=== PATIENT | female | born 1955 | race Caucasian/White ===

== ENCOUNTER 2022-06-09 09:13 | Outpatient (REF) | payer OTHER, SELFPAY ==
--- NOTE | ~2022-06-09 | MM_ITS ---
EXAMINATION: MM SCREENING DIGITAL BREAST TOMOSYNTHESIS, BILATERAL CLINICAL INFORMATION: Screening. Asymptomatic. The lifetime risk of breast cancer based on the Tyrer-Cuzick Model is 3%. COMPARISON: Outside mammography: 08/23/2019, 01/13/2017, 09/05/2014 ([facility]). TECHNIQUE: Digital breast tomosynthesis is performed in both the craniocaudal and mediolateral oblique views along with computer-aided detection (CAD). Synthesized 2D images are generated from the tomosynthesis. FINDINGS: There are scattered areas of fibroglandular density (ACR BI-RADS breast composition Category b). There is fibronodular parenchymal pattern similar to outside exams. There is incidental intramammary node again seen mid upper outer right breast. No developing density or significant mass or architectural abnormality is demonstrated. No abnormal calcifications. The axilla and skin contours are unremarkable. No significant changes. MM/MM tomosynthesis screening BI IMPRESSION: No mammographic evidence of malignancy. ASSESSMENT: BI-RADS 2: Benign RECOMMENDATION: Routine annual mammography screening. This patient's information was entered into a reminder system with a target due date for their next mammogram.
== END 2022-06-09 09:14 | disposition home or self-care (01) ==
LOC: HO.MAMMO 09:13
PROVIDERS: PCP Student in an Organized Health Care Education/Training Program; Visit Provider Student in an Organized Health Care Education/Training Program
DX: Z12.31 Encounter for screening mammogram for malignant neoplasm of breast (principal)
CPT/HCPCS: 77063; 77067

== ENCOUNTER 2023-06-15 09:27 | Outpatient (REF) | payer OTHER, SELFPAY ==
--- NOTE | ~2023-06-15 | MM_ITS ---
EXAMINATION: MM SCREENING DIGITAL BREAST TOMOSYNTHESIS, BILATERAL CLINICAL INFORMATION: Screening. Asymptomatic. The lifetime risk of breast cancer based on the Tyrer-Cuzick Model is 3.2%. COMPARISON: Mammography: This study is compared with prior exams dating back to 2017. TECHNIQUE: Digital breast tomosynthesis is performed in both the craniocaudal and mediolateral oblique views along with computer-aided detection (CAD). Synthesized 2D images are generated from the tomosynthesis. FINDINGS: There are scattered areas of fibroglandular density (ACR BI-RADS breast composition Category b). There are no significant masses, abnormal calcifications, or other abnormalities. There is tissue marker present in the left breast from prior benign percutaneous biopsy. MM/MM tomosynthesis screening BI IMPRESSION: No mammographic evidence of malignancy. ASSESSMENT: BI-RADS BI-RADS 2 - Benign Findings RECOMMENDATION: Routine annual mammography screening. 1 year F/U This examination should not preclude the clinical evaluation of a suspicious palpable abnormality. This patient's information was entered into a reminder system with a target due date for their next mammogram.
== END 2023-06-15 09:28 | disposition home or self-care (01) ==
LOC: HO.MAMMO 09:27
PROVIDERS: PCP Student in an Organized Health Care Education/Training Program; Visit Provider Student in an Organized Health Care Education/Training Program
DX: Z12.31 Encounter for screening mammogram for malignant neoplasm of breast (principal)
CPT/HCPCS: 77063; 77067

== ENCOUNTER → 2023-06-15 09:30 | Outpatient (BNV) | payer OTHER, SELFPAY | PROVIDERS: PCP Student in an Organized Health Care Education/Training Program; Visit Provider Radiology Diagnostic Radiology | DX: Z12.31 Encounter for screening mammogram for malignant neoplasm of breast (principal) | CPT/HCPCS: 77063; 77067 ==

== ENCOUNTER 2024-06-20 09:08 | Outpatient (REF) | payer OTHER, SELFPAY ==
--- NOTE | ~2024-06-20 | MM_ITS ---
EXAMINATION: MM SCREENING DIGITAL BREAST TOMOSYNTHESIS, BILATERAL CLINICAL INFORMATION: Screening. Asymptomatic. COMPARISON: Mammography: This study is compared with prior exams dating back to 2019. TECHNIQUE: Digital breast tomosynthesis is performed in both the craniocaudal and mediolateral oblique views along with computer-aided detection (CAD). Synthesized 2D images are generated from the tomosynthesis. FINDINGS: There are scattered areas of fibroglandular density (ACR BI-RADS breast composition Category b). There are no significant masses, abnormal calcifications, or other abnormalities. There is a biopsy tissue marker in the left breast. MM/MM tomosynthesis screening BI IMPRESSION: No mammographic evidence of malignancy. ASSESSMENT: BI-RADS BI-RADS 2 - Benign Findings RECOMMENDATION: Routine annual mammography screening. 1 year F/U This examination should not preclude the clinical evaluation of a suspicious palpable abnormality. This patient's information was entered into a reminder system with a target due date for their next mammogram.
== END 2024-06-20 09:09 | disposition home or self-care (01) ==
LOC: HO.MAMMO 09:08
PROVIDERS: PCP Student in an Organized Health Care Education/Training Program; Visit Provider Student in an Organized Health Care Education/Training Program
DX: Z12.31 Encounter for screening mammogram for malignant neoplasm of breast (principal)
CPT/HCPCS: 77063; 77067

== ENCOUNTER → 2024-06-20 09:30 | Outpatient (BNV) | payer OTHER, SELFPAY | PROVIDERS: PCP Student in an Organized Health Care Education/Training Program; Visit Provider Radiology Diagnostic Radiology | DX: Z12.31 Encounter for screening mammogram for malignant neoplasm of breast (principal) | CPT/HCPCS: 77063; 77067 ==

== ENCOUNTER 2024-12-27 15:32 | Outpatient (REF) | payer OTHER, SELFPAY ==
--- OUTSIDE RECORDS SUMMARY | 2024-12-27 17:26 | XMS_ITS | Encounter Summary ---
Author Organization [employer] Address [address] [place] [address] Care Team Providers Care Cellular Biologist Name Role Phone Roselia Enrique MD Primary Care Provider [phone] Reason for Visit * Reason Onset Date Comments Nurse Triage 12/27/2024 Encounter Details Date Type Department Care Team ([facility] st Contact Info) Description 12/27/2024 Telephone [facility] [address] [place], [place] [id number] Roselia Enrique MD [address] [place], [place] [phone] Nurse Triage Social History Tobacco Use Types Packs/Day Years Used Date Smoking Tobacco: Former Cigarettes Q uit: 04/29/2022 Smokeless Tobacco: Never Alcohol Use Standard Drinks/Week Comments Yes 1 (1 standard drink = 0.6 oz pur e alcohol) Alcohol Answer Date Recorded How often do you have a drink containing alcohol ? 4 02/12/2023 How many drinks containing a lcohol do you have on a typical day when you are drinking? 0 02/12/2023 How often do you have six or more drinks on one occasion? 0 02/12/2023 Depression Answer Date Recorded Patient Health Questionnaire-9 Score 0 02/12/2023 Housing Stability Answer Date Recorded What is your housing situation today? I have jacob pereyra 09/30/[address] you li ve. Do you have problems with any of the following? None of the above 09/30/2023 Food Insecurity Answer Date Recorded Within the past 12 months, y ou worried that your food would run out before you got money to buy more: Never True 09/30/2023 Within the past 12 months,th e food you bought just didn't last and you didn't have enough money to get more: Never True 12/2022 Transportation Answer Date Recorded In the past 12 months, has l ack of transportation kept you from medical appts, meetings, work or from getting things needed for daily living? No 09/30/2023 Utilities Answer Date Recorded In the past 12 months, has t he electric, gas, oil or water company threatened to shut off services in your home? No 09/30/2023 Depression Answer Date Recorded Patient Health Questionnaire-2 Score 0 02/12/2023 Comments Unknown Sex and Gender Information Value Date Recorded Sex Assigned at Female 2022 10:40 AM EDT Legal Sex Female 10:40 AM EDT Gender Identity Female 2022 10:40 AM EDT Sexual Orientation Straight 02/05/2023 1: 51 PM EST documented as of this encounter Miscellaneous Notes * Telephone Encounter - Ghada Mckeon RN - 12/27/2024 10:27 AM EST called pt to triage, spoke to pt. pt states several days duration of congestion, cough, sore throat, left ear pain, right ear pressure/blockage, and fatigue. pt denies fever, rash, severe or sustained sob, vomiting, or other associated symptoms. given appt today with [facility] at 2:40 for exam. advised home care: rest, fluids, steam, humidifier, warm saltwater gargles, lozenges, OTC pain or fever reliever as needed, and call back if worsening or new concerns. insurance verified. pt understands and agrees with plan. Pt currently on an antibiotic prescribed by PCP due to symptoms but not helping. Protocol Used: Cough (Adult) Protocol-Based Disposition: See in Office or Video Visit Today or Tomorrow Video visit offer not recorded Positive Triage Question: * Patient wants to be seen * All higher-acuity triage questions were negative Care Advice Discussed: * Reassurance and Education - Cough * Cough Medicines * Coughing Spells * Prevent Dehydration * Avoid Tobacco Smoke * Humidifier * Fever Medicines * Reasons To Call Back - Difficulty breathing - Cough lasts more than 3 weeks - Fever lasts more than 3 days - You become worse * Telephone Encounter - Mono Mauro - 12/27/2024 8:53 AM EST Symptom: Cough Outcome: Schedule an appointment to be seen within 24 hours Reason: Caller denied all higher acuity questions Please contact pt/spouse at [phone]. documented in this encounter Plan of Treatment Upcoming Encounters Date Type Department Care Team (Late st Contact Info) Description 01/30/2025 9:30 AM EST Office Visit [facility] [address] [place] [address] Cole Shen MD [address] [place] [address] documented as of this encounter Visit Diagnoses Not on filedocumented in this encounter Additional Health Concerns Assessment Noted Time PHQ-9 Depression Total Score: 0 02/13/20 23 10:30 AM EDT documented as of this encounter Care Teams Cellular Biologist Relationship Specialty Start Date End Date Roselia Enrique MD [address] [place] [id number] PCP - General Family Medicine 04/24/22 documented as of this encounter
--- OUTSIDE RECORDS SUMMARY | 2024-12-27 17:26 | XMS_ITS | Clinical Summary ---
Author Organization [facility] Address [address] [place] [address] Care Team Providers Care Riprap Worker Name Role Phone Unavailable Primary Care Provider Unavailabl e Allergies No known active allergies Medications Medication Sig Dispensed Refills Start Date End Date Status ibuprofen 200 MG tablet Take 400 mg by mouth every 6 (six) hours as needed for pain. 0 Active meloxicam (MOBIC) 7.5 MG tablet PLEASE SEE ATTACHED FOR DETAILED DIRECTIONS 60 tablet 0 09/08/2021 Active Social History Tobacco Use Types Packs/Day Years Used Date Smoking Tobacco: Every Day Cigarettes 1 Smokeless Tobacco: Never Alcohol Use Standard Drinks/Week Comments Yes 0 (1 standard drink = 0.6 oz pur e alcohol) Sex and Gender Information Value Date Recorded Sex Assigned at Not on file Gender Identity Not on file Sexual Orientation Not on file Job Start Date Occupation Industry Not on file Not on file Not on file Last Filed Vital Signs Vital Sign Reading Time Taken Comments Blood Pressure - - Pulse 97 08/08/2021 1:44 PM EDT Temperature 36.6 ??C (97.8 ??F) 08/08/2021 1:44 PM ED T Respiratory Rate - - Oxygen Saturation 96% 08/08/2021 1:44 PM EDT Inhaled Oxygen Concentration - - Weight 68 kg (150 lb) 08/08/2021 1:44 PM EDT Height 157.5 cm (5' 2 ) 08/08/2021 1:44 PM EDT Body Mass Index 27.44 08/08/2021 1:44 PM EDT Plan of Treatment Health Maintenance Due Date Last Done Comments Hepatitis C Screening 1956 Pneumococcal Vaccine (1 of 2 - PCV) 1962 Depression Screening 1968 Preventative Health Evaluation 1974 Tobacco Cessation Counseling 1974 Colon Cancer Screening (Colonoscopy) 2001 Breast Cancer Screening (Mammogram) 2006 Shingrix-Zoster Vaccine (1 of 2) 2006 Fall Risk Assessment 2021 Osteoporosis Screening (DEXA Scan) 2021 DTap / Tdap / Td (2 - Td or Tdap) 02/18/2022 02/19/2012 COVID-19 Vaccine (3 - season) 2024 04/02/2021, 03/05/2021 Influenza Vaccine (#1) 2024 0, 09/26/2019, 09/16/2018, Additional history exists RSV Adult > 60+ Yrs or (1 - 1-dose 75+ series) 2031 Hepatitis B Vaccines Aged Out No long er eligible based on patient's age to complete this topic RSV Ped < 20 months Aged Out No longe r eligible based on patient's age to complete this topic
--- OUTSIDE RECORDS SUMMARY | 2024-12-27 17:26 | XMS_ITS | Clinical Summary ---
Author Organization [address] [place] [address] Address [address] [place] [address] Phone Care Team Providers Care Supervisor Acoustical Tile Carpenters Name Role Phone Roselia Enrique MD Primary Care Provider [phone] Allergies Active Allergy Reactions Criticality Noted Date Comments Iodinated Contrast Media Hives 12/08/2011 Medications Medication Sig Dispensed Refills Start Date End Date Status cholecalciferol, vitamin D3, (VITAMIN D3 ORAL) Take 1,000 mg by mouth 1 (one) time each day. Active IRON-FOLIC ACID ORAL Take by mouth daily. Active Active Problems Problem Noted Date Diagnosed Date Tachycardia 11/02/2024 PAD (peripheral artery disease) 07/29/2022 Overview (11/02/2024): Last Assessment & Plan: Patient has history of significant peripheral arterial disease and recently underwent revascularization of her right lower extremity. She continues to follow with vascular surgery. Prior to surgery she underwent cardiac evaluation with an echocardiogram and nuclear stress testing. We once again discussed the results of her testing. She does not have any other cardiac symptoms or cardiac problems. We discussed that she is at an increased risk for cardiovascular disease given her history of peripheral arterial disease hyperlipidemia and history of smoking. Patient is encouraged to continue to abstain from smoking. We also discussed that continuing with aspirin and statin will help with her cardiovascular risks as well. At this point, she does not have any cardiac symptoms and will follow up with us only as needed. Aortic occlusion 07/24/2022 Diverticulitis large intesti ne w/o perforation or abscess w/o bleeding 08/03/2017 Overview (11/02/2024): First attack 06/2017. Osteopenia 02/03/2017 Overview (11/02/2024): T score -1.7 the spine, -0.3 the femoral neck Epigastric pain 10/30/2015 Overview (11/02/2024): EGD normal 10/13; Dr. Mcqueen Psoriasis 02/19/2012 Tobacco use disorder 02/02/2012 Sacroiliac joint pain 02/01/2012 Hyperlipidemia 12/08/2011 Overview (11/02/2024): Last Assessment & Plan: Continue with atorvastatin as prescribed. Lumbar disc herniation 12/08/2011 Encounters Date Type Department Care Team Description 12/22/2024 7:30 AM EST Ancillary Procedure [facility] - [address] [place] [phone] Aortic occlusion (CMS/HCC) 12/04/2024 Telephone Vascular Surgery - [place] [address] [place] [phone] Stevan Steel MD Imaging Follow-up; Testing from Last 3 Months Immunizations Name Administration Dates Next Due Influenza Quadravalent, MDCK , 0.5ml, preservative free (Flucelvax) 6mo and older 09/16/2018 Influenza trivalent, 0.5mL, preservative free (Fluarix; FluLaval; Fluzone) ages 6mo and older (Afluria) 3 years and older 09/21/2020,09/26/2019,08/23/2015 Moderna SARS-CoV-2 COVID-19, mRNA, LNP-S, preservative free 04/02/2021,03/05/2021 Tdap Tetanus diptheria acell ular pertussis (Boostrix; Adacel) 7yo and older 02/19/2012 Surgical History Surgery Date Site/Laterality Comments OTHER SURGICAL HISTORY 1994 PROCEDURE: LA TOTAL ABDOMINAL HYSTERECT W/WO RMVL TUBE OVARY OTHER SURGICAL HISTORY 2009 PROCEDURE: PARTIAL REMOVAL OF THYROI KIDNEY STONE SURGERY 1979 PROCEDURE: LA NEPHROLITHOTOMY REMOVAL CALCULUS APPENDECTOMY 1994 PROCEDURE: HISTORICAL APPENDECTOMY OTHER SURGICAL HISTORY PROCEDURE: LA COLECTOMY PARTIAL W/ANASTOMOSIS OTHER SURGICAL HISTORY 05/11/2022 PROCEDURE: LA TEAEC W/WO PATCH GRAFT ABDOMINAL AORTA; COMMENT: Infrarenal aortic edarterectomy with bovine pericardial patch angioplasty OTHER SURGICAL HISTORY 05/11/2022 PROCEDURE: LA ENTEROLSS FRING INTSTINAL ADHESION SPX; COMMENT: Extensive lysis of large and small bowl adhesions HYSTERECTOMY PROCEDURE: HISTORICAL TOTAL HYSTERECTOMY WITH BSO OTHER SURGICAL HISTORY PROCEDURE: HISTORY OTHER; COMMENT: Colectomy Medical History Medical History Date Comments Pneumonia DX:Pneumonia; CO MMENT: as a child Back pain DX:Back pain Hip pain, left 12/08/2011 DX:Hip pain, lef t High cholesterol DX:High cholest lorene Psoriasis 02/19/2012 DX:Psoriasis Tachycardia DX:Tachycardia Diverticulitis large intesti ne w/o perforation or abscess w/o bleeding 08/03/2017 DX:Diverticulitis large intestine w/o perforation or abscess w/o bleeding; COMMENT: First attack 06/2017. Critical lower limb ischemia (CMS/HCC) DX:Critical lower limb ische sofia (HCC) Intermittent claudication du e to atherosclerosis of artery of extremity (CMS/HCC) DX:Intermittent claudication due to atherosclerosis of artery of extremity (HCC) Rest pain of both lower extr emities due to atherosclerosis (CMS/HCC) DX:Rest pain of both lower extremities due to atherosclerosis (HCC) Acute respiratory failure wi th hypoxia (CMS/HCC) DX:Acute respiratory failure with hypoxia (HCC) Postoperative ileus (CMS/HCC) DX :Postoperative ileus (HCC) Acute postoperative pain DX:Acut e postoperative pain Acute postoperative anemia d ue to greater than expected blood loss DX:Acute postoperativ e anemia due to greater than expected blood loss Family History Medical History Relation Name Comments Hyperlipidemia Brother 1 Kendall Other: pulm emb Brother 1 Kendall Other: pvd Brother 1 Kendall No Known Problems Brother 2 No Known Problems Brother 3 Diabetes Father Glaucoma Father Hypertension Father Other: CKD Father Other: gout Father Pancreatic cancer Sister dx 08/12 Relation Name Status Comments Brother 1 Kendall Alive clotting disord er, Pulmonary embolism, hyperlipidemia Brother 2 Alive Brother 3 Alive Daughter Alive ulcerative coli tis Father Alive Mother Alive chol Sister (Age 61) Son Alive healthy; WALLY Social History Tobacco Use Types Packs/Day Years Used Date Smoking Tobacco: Former Cigarettes 0.8 50.4 0 11/29/1971 - 04/29/2022 Smokeless Tobacco: Never Alcohol Use Standard Drinks/Week Comments Yes 0 (1 standard drink = 0.6 oz pur e alcohol) Sex and Gender Information Value Date Recorded Sex Assigned at Female 12/02/2022 2:53 PM EST Gender Identity Female 12/02/2022 2:53 PM EST Sexual Orientation Not on file Job Start Date Occupation Industry Not on file Not on file Not on file Obstetrics History Last Filed Vital Signs Vital Sign Reading Time Taken Comments Blood Pressure 120/70 07/21/2024 9:38 AM EDT Pulse 72 07/21/2024 9:38 AM EDT Temperature - - Respiratory Rate - - Oxygen Saturation - - Inhaled Oxygen Concentration - - Weight 72.1 kg (159 lb) 07/21/2024 9:38 AM EDT Height 160 cm (5' 3 ) 07/21/2024 9:38 AM EDT Body Mass Index 28.17 07/21/2024 9:38 AM EDT Plan of Treatment Upcoming Encounters Date Type Department Care Team (Late st Contact Info) Description 01/22/2025 8:30 AM EST Office Visit Vascular Surgery - [place] [address] [place] [phone] Stevan Steel MD [address] [place] [address] Health Maintenance Due Date Last Done Comments Zoster Vaccines (1 of 2) 2006 Breast Cancer Screening 08/23/2021 08/23/2019 Cholesterol Screening (Lipid Panel) 11/07/2022 01/06/2017 Falls Risk Assessment 11/07/2022 Lung Cancer Screening (Low Dose CT) 11/07/2022 Medicare Annual Wellness Visit 11/07/2022 Social Influencers of Health Screening 11/07/2022 Pneumococcal Vaccine: 65+ Years (2 of 2 - PPSV23 or PCV20) 06/25/2023 06/25/2022 Depression Screening 02/13/2024 02/12/2023 COVID-19 Vaccine ( - season) 2024 04/02/2021, 03/05/2021 Influenza Vaccine (#1) 2024 , 09/21/2020, 09/26/2019, Additional history exists Colorectal Cancer Screening: Colonoscopy 01/30/2026 01/30/2021 Osteoporosis Screening (Bone Density Screening) 08/24/2029 08/24/2019 RSV Immunization Patients 60+ Years Old (1 - 1-dose 75+ series) 2031 DTaP,Tdap,and Td Vaccines (3 - Td or Tdap) 06/25/2032 06/25/2022, 02/19/2012 Hepatitis C Screening Completed 06/29/2015 HIB Vaccines Aged Out No longer eligi ble based on patient's age to complete this topic HPV Vaccines Aged Out No longer eligi ble based on patient's age to complete this topic Hepatitis A Vaccines Aged Out No long er eligible based on patient's age to complete this topic Hepatitis B Vaccines Aged Out No long er eligible based on patient's age to complete this topic IPV Vaccines Aged Out No longer eligi ble based on patient's age to complete this topic MMR Vaccines Aged Out No longer eligi ble based on patient's age to complete this topic Meningococcal ACWY Vaccine Aged Out N o longer eligible based on patient's age to complete this topic RSV Immunization Patients Under 20 months Aged Out No longer eligible based on patient's age to complete this topic Varicella Vaccines Aged Out No longer eligible based on patient's age to complete this topic Procedures Procedure Name Priority Date/Time Associated Diagnosis Comments VAS US DUPLEX AORTA/IVC/ILIAC/MICHAELA TS COMPLETE Routine 12/22/2024 7:44 AM EST Aortic occlusion (CMS/HCC) COLONOSCOPY Routine 01/30/2021 [facility] DEXA AXIAL SKELETON Routine 08/24/2019 5:09 PM EDT Asymptomatic menopausal state [facility] SCREENING DIGITAL Routine 08/23/2019 9:36 AM EDT Encounter for screening mammogram for malignant neoplasm of breast LIPID PANEL Routine 01/06/2017 HEPATITIS C SCREENING Routine 06/29/2015 from Last 3 Months or Most Recently Relevant to Health Maintenance Results * Vascular US duplex aorta/IVC/iliac/grafts complete (12/22/2024 7:44 AM EST) Abdominal dist aorta leila 149 cm/s CV [facility] Abdominal mid aorta leila 116 cm/s CV [facility] Abdominal prox aorta leila 85 cm/s CV [facility] LAB Abdominal prox aorta AP 1.45 cm CV [facility] Abdominal prox aorta trans 1.57 cm CV [facility] Proximal Aorta Long Diameter 1.45 cm CV [facility] Abdominal mid aorta AP 1.03 cm CV [facility] LAB Abdominal mid aorta trans 1.75 cm CV VAS LAB Mid Aorta Long Diameter 0.89 cm CV [facility] LAB Abdominal dist aorta AP 0.74 cm CV VAS LAB Abdominal dist aorta trans 1.03 cm CV V[facility] LAB Dist Aorta Long Diameter 0.62 cm CV V[facility] LAB Abdominal rt com iliac AP 0.77 cm CV VAS LAB Abdominal rt com iliac trans 0.86 cm CV VAS LAB Right Common Iliac Long Diameter 0.70 cm CV VAS LAB Right Prox Common Iliac PSV 170 cm/s CV V[facility] LAB Abdominal lt com iliac AP 0.58 cm CV V[facility] LAB Abdominal lt com iliac trans 0.79 cm CV VAS LAB Left Common Iliac Long Diameter 0.58 cm CV VAS LAB Left Prox Common Iliac PSV 156 cm/s CV VAS LAB Anatomical Region Laterality Modality Vascular, Abdomen Ultrasound Narrative 12/24/2024 10:49 AM EST Normal size of the abdominal aorta without any aneurysm. Mild atherosclerotic plaque of the abdominal aortic wall. Bilateral common iliac arteries are normal in size and flow velocity. Textile Stylist Details A daniels scale, color and doppler analysis ultrasound was performed. During the study longitudinal and transverse views were obtained. Pulsed wave doppler was performed. Stevan Steel MD CV VASCULAR PROCEDUR ES * Colonoscopy (01/30/2021) Colonoscopy Abstracted. No Interpretation Anatomical Region Laterality Modality Other Historical Provider MD LIDIA LERNER E * ROGELIO DEXA AXIAL SKELETON (08/24/2019 5:09 PM EDT) Anatomical Region Laterality Modality Mammography 08/23/2019 7:47 AM EDT Narrative 08/24/2019 5:09 PM EDT [facility] Diagnostic Imaging Department [address] [place] [address] [id number] Patient: ??COREEN WRIGHTARA Lisa ?/Age/Sex: 1955 - 63 - F Unit#: ??[id number] ? Location/Status: ??SPDIMAM/REG CLI ? Mnemonic/Ordering Site: ??MAMDEXAAX/SPMAM Ordering Physician: ??CURRY CROOKS MD [facility] Dexa Axial Skeleton - 08/23/19 - 0856 [facility] Dexa Axial Skeleton INDICATION: POSTMENOPAUSAL Technique: Bone densitometry was performed utilizing dual energy x-ray absorptiometry (DEXA). The lumbar spine is evaluated in the AP projection from L1 through L4. The proximal femora are evaluated in the AP projection bilaterally. COMPARISON: 01/13/2017 FINDINGS: AP spine: Bone mineral density: 0.946 gm/cm2 T-score: -2.0 Right femoral neck: Bone mineral density: 0.806 gm/cm2 T-score: -1.7 IMPRESSION: Findings suggesting osteopenia, placing the patient at risk for fracture. The FRAX result suggests a 10 year probability of major osteoporotic fracture of 15.7 % and hip fracture of 2.9%. 10 year probability of osteoporotic fracture may be lower than FRAX estimate if patient has received treatment. [id number] A report detailing these results has been enclosed. Dictating Physician: ??KIZZY HERRERA MD Electronically Signed by: ??KIZZY HERRERA MD Dic Date/Time: ??08/24/191707 Sign date/Time: ??08/24/191708 Procedure Note Kizzy Herrera - 11/18/2022 [facility] Diagnostic Imaging Department [address] [place] [id number] Patient: SUZANNEOMAYRA Lisa Yanes./Age/Sex: 1955 - 63 - F Unit#: [id number] Location/Status: [facility] CLI Mnemonic[facility]Ordering [facility] Ordering Physician: CURRY CROOKS MD [facility] Dexa Axial Skeleton - 08/23/19 - 0856 [facility] Dexa Axial Skeleton INDICATION: POSTMENOPAUSAL Technique: Bone densitometry was performed utilizing dual energy x-ray absorptiometry (DEXA). The lumbar spine is evaluated in the AP projectionfrom L1 through L4. The proximal femora are evaluated in the AP projection bilaterally. COMPARISON: 01/13/2017 FINDINGS: AP spine: Bone mineral density: 0.946 gm/cm2 T-score: -2.0 Right femoral neck: Bone mineral density: 0.806 gm/cm2 T-score: -1.7 IMPRESSION: Findings suggesting osteopenia, placing the patient at risk forfracture. The FRAX result suggests a 10 year probability of major osteoporoticfracture of 15.7 % and hip fracture of 2.9%. 10 year probability of osteoporotic fracture may be lower than FRAXestimate if patient has received treatment. 96178 A report detailing these results has been enclosed. Dictating Physician: KIZZY HERRERA MD Electronically Signed by: KIZZY HERRERA MD Dic Date/Time: 08/24/191707 Sign date/Time: 08/24/191708 Curry Crooks MD IMG BI PROCEDURES * ROGELIO SCREENING DIGITAL (08/23/2019 9:36 AM EDT) Anatomical Region Laterality Modality Mammography 08/23/2019 7:49 AM EDT Narrative 08/23/2019 9:36 AM EDT [facility] Diagnostic Imaging Department [address] [place] [address] Patient: ??COREEN WRIGHTARA Lisa ?/Age/Sex: 1955 - 63 - F Unit#: ??[id number] ? Location/Status: ??SPDIMAM/REG CLI ? Mnemonic/Ordering Site: ??DIGSC/SPMAM Ordering Physician: ??CURRY CROOKS MD Rogelio Screening Digital - 08/23/19806 History: Bilateral breast cancer screening. Technique: Digital mammography. Conventional CC and MLO projections with tomosynthesis MLO views and computer aided detection. Comparison made with previous mammograms from [facility] 01/13/2017 through 01/16/2005. Findings: Breast tissue consists of a heterogenous combination of ??fatty and fibroglandular tissue, potentially obscuring small lesions, category c density. There are benign calcifications bilaterally. No suspicious group of microcalcification, suspicious mass, concerning focal asymmetry, architectural distortion or concerning change in breast density affecting either breast. Impression: ??No evidence of malignancy. BIRADS category 2; benign findings, 3342F 33441, 44947 A negative mammogram in the face of a clinically suspicious abnormality does not exclude the possibility of malignancy nor alter the indications for biopsy. Note: Patient information entered ??into a reminder system with a target due date for the next mammogram; PQRI II [id number] Dictating Physician: ??ALEXSANDER MATHIS MD Electronically Signed by: ??ALEXSANDER MATHIS MD Dic Date/Time: ??08/23/19934 Sign date/Time: ??08/23/19935 Procedure Note Alexsander Mathis - 11/18/2022 [facility] Diagnostic Imaging Department [address] [place] [address] Patient: OMAYRA WRIGHT Lisa /Age/Sex: 1955 - 63 - F Unit#: [id number] Location/Status: [facility] Mnemonic/Ordering Site: [facility] Ordering Physician: CURRY CROOKS MD Rogelio Screening Digital - 08/23/19806 History: Bilateral breast cancer screening. Technique: Digital mammography. Conventional CC and MLO projections with tomosynthesis MLO views and computer aided detection. Comparison made with [facility] mammograms [facility] through 01/16/2005. Findings: Breast tissue consists of a heterogenous combination of fattyand fibroglandular tissue, potentially obscuring small lesions, category cdensity. There are benign calcifications bilaterally. No suspicious group of microcalcification, suspicious mass, concerning focal asymmetry,architectural distortion or concerning change in breast density affecting eitherbreast. Impression: No evidence of malignancy. BIRADS category 2; benign findings, 3342F 71094, 43994 A negative mammogram in the face of a clinically suspicious abnormalitydoes not exclude the possibility of malignancy nor alter the indications forbiopsy. Note: Patient information entered into a reminder system with a targetdue date for the next mammogram; PQRI II [id number] Dictating Physician: ALEXSANDER MATHIS MD Electronically Signed by: ALEXSANDER MATHIS MD Dic Date/Time: 08/23/19934 Sign date/Time: 08/23/19935 Curry Crooks MD IMG BI PROCEDURES * (ABNORMAL) Lipid panel (01/06/2017) Pathologist [facility] LDL/HDL Ratio 7(A) 0 - 4 Triglycerides 218(A) 0 - 150 mg/dL Cholesterol 288(A) 0 - 200 mg/dL HDL 43 40 mg/dL LDL Cholesterol 202(A) 0 - 100 mg/dL Blood Venous blood specimen / Unknown Historical Provider LAB BLOOD ORDERAB LES * Hepatitis C Screening (06/29/2015) Pathologist [facility] Hepatitis C Screening Abstracted Historical Provider [facility] YANN Ulrich from Last 3 Months or Most Recently Relevant to Health Maintenance Advance Directives Documents on File Type Date Recorded Patient Parking Technician Expl anation Health Care Decision (hx) 05/11/2022 AD SHAHID DIRECTIVE Health Care Decision (hx) 05/11/2022 AD SHAHID DIRECTIVE Health Care Decision (hx) 05/11/2022 AD SHAHID DIRECTIVE Health Care Decision (hx) 05/11/2022 AD SHAHID DIRECTIVE Health Care Decision (hx) 05/11/2022 AD SHAHID DIRECTIVE Health Care Decision (hx) 05/11/2022 AD SHAHID DIRECTIVE Health Care Decision (hx) 05/11/2022 AD SHAHID DIRECTIVE Health Care Decision (hx) 05/11/2022 AD SHAHID DIRECTIVE Health Care Decision (hx) 05/11/2022 AD SHAHID DIRECTIVE Care Teams Supervisor [employer]ical Tile Carpenters Relationship Specialty Start Date End Date Roselia Enrique MD [address] [place] [address] PCP - General 05/27/22
--- OUTSIDE RECORDS SUMMARY | 2024-12-27 17:26 | XMS_ITS | Encounter Summary ---
Author Organization [facility] Address [address] [place] [address] Care Team Providers Care Spine Nurse Name Role Phone Roselia Enrique MD Primary Care Provider [phone] Reason for Referral * Imaging (Routine) - Closed Specialty Diagnoses / Procedures Referred By Contac t Referred To Contact Diagnoses Aortic occlusion (CMS/HCC) Procedures Vascular US duplex aorta/IVC/iliac/grafts complete Stevan Steel MD [address] [address] [facility] Referral ID Status Reason Start Date Expiration Date Visits Re quested Visits Authorized [id number] Closed 12/04/2024 12/04/2025 1 1 Reason for Visit * Reason Onset Date Comments Imaging Follow-up 12/04/2024 Testing 12/04/2024 Encounter Details Date Type Department Care Team (Late st Contact Info) Description 12/04/2024 Telephone Vascular Surgery - [place] [address] [phone] Stevan Steel MD [address] [place] [phone] Imaging Follow-up; Testing Social History Tobacco Use Types Packs/Day Years [...] file Not on file Not on file documented as of this encounter Progress Notes * Ron Miner MA - 12/04/2024 1:02 PM EST ordered * Elijah Garrison - 12/04/2024 12:54 PM EST Patient has yet to receive a date for an aortoiliac duplex. Patient is due to be back in our officeon 01/22. Please resubmit order so scheduling may happen. documented in this encounter Plan of Treatment Upcoming Encounters Date Type Department Care Team (Late st Contact Info) Description 01/22/2025 8:30 AM EST Office Visit Vascular Surgery - [place] [address] [place] [address] Stevan Steel MD [address] [place] [address] documented as of this encounter Results * Vascular US duplex aorta/IVC/iliac/grafts complete [...] are normal in size and flow velocity. Divine Healer Details A daniels scale, color and doppler analysis ultrasound was performed. During the study longitudinal and transverse views were obtained. Pulsed wave doppler was performed. Stevan Steel MD CV VASCULAR PROCEDUR ES documented in this encounter Visit Diagnoses Diagnosis Aortic occlusion (CMS/HCC)- Primary Aortic occlusion (CMS/HCC) documented in this encounter Care Teams Spine Nurse Relationship Specialty Start Date End Date Roselia Enrique MD [address] [place] [phone] PCP - General 05/27/22 documented as of this encounter
--- OUTSIDE RECORDS SUMMARY | 2024-12-27 17:26 | XMS_ITS | Encounter Summary ---
Author Organization [employer] Address [address] [facility] [address] [place] [address] Care Team Providers Care Water Quality Technician Name Role Phone Roselia Enrique MD Primary Care Provider [phone] Encounter Details Date Type Department Care Team (Latest Contact Info) Description 12/27/2024 Travel Social History Tobacco Use Types Packs/Day Years [...] PM EST documented as of this encounter Plan of Treatment Upcoming Encounters Date Type Department Care Team (Late st Contact Info) Description 01/30/2025 9:30 AM EST Office Visit [facility] [address] [place] [address] Cole Shen MD [address] [place] [address] documented as of this encounter Visit Diagnoses Not on filedocumented in this encounter Additional Health Concerns Assessment Noted Time PHQ-9 Depression Total Score: 0 02/13/20 23 10:30 AM EDT documented as of this encounter Care Teams Water Quality Technician Relationship Specialty Start Date End Date Roselia Enrique MD [address] [place] [address] PCP - General Family Medicine 04/24/22 documented as of this encounter
--- OUTSIDE RECORDS SUMMARY | 2024-12-27 17:26 | XMS_ITS | Encounter Summary ---
Author Organization [employer] Address [address] [facility] [address] [place] [address] Care Team Providers Care Right Of Way Appraiser Name Role Phone Roselia Enrique MD Primary Care Provider [phone] Reason for Visit * Reason Comments Med Change Request Encounter Details Date Type Department Care Team (Late Contact Info) Description 12/31/2022 Refill [facility]S [address] [place], [place] [phone] Roselia Enrique MD [address] [place] [address] Aortic occlusion (CMS/HCC) Social History Tobacco Use Types Packs/Day Years Used Date Smoking Tobacco: Never Smokeless Tobacco: Never Comments Unknown Sex and Gender Information Value Date Recorded Sex Assigned at Female 2022 10:40 AM EDT Legal Sex Female 10:40 AM EDT Gender Identity Female 2022 10:40 AM EDT Sexual Orientation Straight 02/05/2023 1: 51 PM EST COVID-19 Exposure Response Date Recorded In the last 10 days, have yo u been in contact with someone who was confirmed or suspected to have Coronavirus/COVID-19? No / Unsure 12/03/2022 10:31 AM EST documented as of this encounter Plan of Treatment Upcoming Encounters Date Type Department Care Team (Late st Contact Info) Description 01/30/2025 9:30 AM EST Office Visit [facility] [address] [place] [address] Cole Shen MD [address] [place], [place] [phone] documented as of this encounter Visit Diagnoses Diagnosis Aortic occlusion (CMS/HCC) documented in this encounter Care Teams Right Of Way Appraiser Relationship Specialty Start Date End Date Roselia Enrique MD [address] [place] [id number] PCP - General Family Medicine 04/24/22 documented as of this encounter
--- OUTSIDE RECORDS SUMMARY | 2024-12-27 17:26 | XMS_ITS | Encounter Summary ---
Author Organization [employer] Address [address] [place] [address] Care Team Providers Care Franchise Field Consultant Name Role Phone Roselia Enrique MD Primary Care Provider [phone] Encounter Details Date Type Department Care Team ([facility] st Contact Info) Description 12/25/2024 Telephone [facility]ED[facility] [address] [place] [address] Roselia Enrique MD [address] [place], [place] [phone] Social History Tobacco Use Types Packs/Day Years [...] Description 01/30/2025 9:30 AM EST Office Visit [facility] [address] [place] [address] Cole Shen MD [address] [place] [address] documented as of this encounter Visit Diagnoses Not on filedocumented in this encounter Additional Health Concerns Assessment Noted Time PHQ-9 Depression Total Score: 0 02/13/20 23 10:30 AM EDT documented as of this encounter Care Teams Franchise Field Consultant Relationship Specialty Start Date End Date Roselia Enrique MD [address] [place] [phone] PCP - General Family Medicine 04/24/22 documented as of this encounter
--- OUTSIDE RECORDS SUMMARY | 2024-12-27 17:26 | XMS_ITS | Encounter Summary ---
Author Organization [employer] Address [address] [facility] [address] [place] [address] Care Team Providers Care Branch Or Department Chief Librarian Name Role Phone Roselia Enrique MD Primary Care Provider [phone] Reason for Visit * Reason Comments Shortness of Breath Encounter Details Date Type Department Care Team ([facility] st Contact Info) Description 12/27/2024 2:40 PM EST Office Visit [facility] & PEDS [address] [place], [place] [phone] Cole Shen MD [address] [place] [address] Sensation of fullness in both ears (Primary Dx); Other infective acute otitis externa of both ears; Iron deficiency anemia secondary to inadequate dietary iron intake; Psoriasis Social History Tobacco Use Types Packs/Day Years [...] the past 12 months, has t he [employer], gas, oil or water [employer] threatened to shut off services in your home? No 09/30/2023 Depression Answer Date Recorded Patient Health Questionnaire-2 Score 0 02/12/2023 Comments Unknown Sex and Gender Information Value Date Recorded Sex Assigned at Female 2022 10:40 AM EDT Legal Sex Female 10:40 AM EDT Gender Identity Female 2022 10:40 AM EDT Sexual Orientation Straight 02/05/2023 1: 51 PM EST documented as of this encounter Last Filed Vital Signs Vital Sign Reading Time Taken Comments Blood Pressure 139/80 12/27/2024 2:30 PM EST Pulse 105 12/27/2024 2:30 PM EST Temperature 36.7 ??C (98 ??F) 12/27/2024 2:30 PM EST Respiratory Rate 20 12/27/2024 2:30 PM EST Oxygen Saturation 94% 12/27/2024 2:30 PM EST Inhaled Oxygen Concentration - - Weight - - Height - - Body Mass Index - - documented in this encounter Progress Notes * Cole Shen MD - 12/27/2024 2:40 PM EST Subjective Patient ID: Miranda Wright is a 69 y.o. female who presents for No chief complaint on file.. Earache There is pain in both ears. This is a new problem. The current episode started in the past 7 days. The problem occurs constantly. The problem has been rapidly worsening. The maximum temperature recorded prior to her arrival was 100.4 - 100.9 F. The fever has been present for 1 to 2 days. The pain is at a severity of 6/10. Associated symptoms include coughing, ear discharge, headaches, rhinorrhea and a sore throat. Pertinent negatives include no abdominal pain, diarrhea, hearing loss, neck pain,rash or vomiting. Note from triage reviewed: pt states several days duration of congestion, cough, sore throat, left ear pain, right ear pressure/blockage, and fatigue. pt denies fever, rash, severe or sustained sob, vomiting, or other associated symptoms. given appt today with [facility] at 2:40 for exam. advised home care: rest, fluids, steam, humidifier, warm saltwater gargles, lozenges, OTC pain or fever reliever as needed, and call back if worsening or new concerns. insurance verified. pt understands and agrees with plan. History is verified. Patient is mostly concerned about right ear fullness and feels some fullness as well on the left ear. No fever or other constitutional symptoms reported. Patient Active Problem List Diagnosis Aortic occlusion (CMS/HCC) Iron deficiency anemia secondary to inadequate dietary iron intake Psoriasis Current Outpatient Medications on File Prior to Visit Medication Sig Dispense Refill amoxicillin-clavulanate (Augmentin) 875-125 MG tablet Take 1 tablet by mouth 2 times daily for 10 days. 20 tablet 0 Aspirin Low Dose 81 MG EC tablet atorvastatin (Lipitor) 40 MG tablet Take 1 tablet (40 mg) by mouth in the morning. 30 tablet 11 cholecalciferol (Vitamin D-3) 50 MCG (2000 UT) tablet Take by mouth at bed time. ferrous sulfate 325 (65 Fe) MG tablet Take 1 tablet by mouth at bed time. triamcinolone (Kenalog) 0.1 % cream Apply topically if needed in the morning and at bedtime (pain and swelling). 30 g 2 No current facility-administered medications on file prior to visit. Allergies Allergen Reactions Iodinated Contrast Media Other reaction(s): Hives / Skin Rash Review of Systems Constitutional: Negative for appetite change, chills and diaphoresis. HENT: Positive for ear discharge, ear pain, rhinorrhea and sore throat. Negative for hearing loss. Respiratory: Positive for cough. Gastrointestinal: Negative for abdominal pain, diarrhea and vomiting. Musculoskeletal: Negative for neck pain. Skin: Negative for rash. Neurological: Positive for headaches. Objective Physical Exam Constitutional: General: She is not in acute distress. Appearance: Normal appearance. She is not ill-appearing, toxic-appearing or diaphoretic. HENT: Right Ear: Hearing normal. Tenderness present. Pulmonary: Effort: Pulmonary effort is normal. Neurological: Mental Status: She is alert. Assessment/Plan Diagnoses and all orders for this visit: Sensation of fullness in both ears - POCT Rapid Covid-19 BinaxNOW - POCT Rapid Influenza A OSOM - POCT Rapid Influenza B OSOM - POCT Rapid Strep A OSOM - SARS-CoV-2 RNA, Influenza A/B, and RSV RNA, Ql NAAT Other infective acute otitis externa of both ears - tceoxxex-xrfmuuxnx-jtmutvxsjmgnov (Cortisporin) 3.5-43010-5 otic suspension; Administer 4 drops into affected ear(s) 4 times daily for 10 days. - naproxen (Naprosyn) 500 MG tablet; Take 1 tablet (500 mg) by mouth 2 times daily. Iron deficiency anemia secondary to inadequate dietary iron intake Comments: Has not had any blood work in the last 2 years. Labs ordered. Patient will need to schedule her annual physical Orders: - CBC auto differential; Future - Comprehensive Metabolic Panel; Future - Lipid Panel, Standard; Future - TSH W/Reflex to FT4; Future Psoriasis Comments: Concerned about an erythematous small lesion of the bridge of the nose. Will need dermatology clinic evaluation Orders: - CBC auto differential; Future - Comprehensive Metabolic Panel; Future - Lipid Panel, Standard; Future - TSH W/Reflex to FT4; Future documented in this encounter Plan of Treatment Upcoming Encounters Date Type Department Care Team (Late st Contact Info) Description 01/30/2025 9:30 AM EST Office Visit [facility] & P[facility] [address] [place] [address] Cole Shen MD [address] [place] [address] Scheduled Orders Name Type Priority Associated Diagnoses Orde r Schedule SARS-CoV-2 RNA, Influenza A/B, and RSV RNA, Ql NAAT Microbiology Routine Sensation of fullness in both ears Ordered: 12/27/2024 CBC auto differential Lab Routine Iron deficiency anemia secondary to inadequate dietary iron intake Psoriasis Expected: 12/27/2024 (Approximate), Expires: 12/27/2025 Comprehensive Metabolic Panel Lab Routine Iron deficiency anemia secondary to inadequate dietary iron intake Psoriasis Expected: 12/27/2024 (Approximate), Expires: 12/27/2025 Lipid Panel, Standard Lab Routine Iron deficiency anemia secondary to inadequate dietary iron intake Psoriasis Expected: 12/27/2024 (Approximate), Expires: 12/27/2025 TSH W/Reflex to FT4 Lab Routine Iron deficiency anemia secondary to inadequate dietary iron intake Psoriasis Expected: 12/27/2024 (Approximate), Expires: 12/27/2025 documented as of this encounter Procedures Procedure Name Priority Date/Time Associated Diagnosis Comments POCT RAPID STREP A Routine 12/27/2024 3: 34 PM EST Sensation of fullness in both ears POCT INFLUENZA B Routine 12/27/2024 3:33 PM EST Sensation of fullness in both ears POCT INFLUENZA A Routine 12/27/2024 3:33 PM EST Sensation of fullness in both ears POCT RAPID COVID ANTIGEN Routine 12/27/2024 3:32 PM EST Sensation of fullness in both ears documented in this encounter Results * POCT Rapid Strep A OSOM (12/27/2024 3:34 PM EST) [facility] Rapid Strep A Screen Negative Negative, None Detected QC Media Lot # [id number] Lot# Expiration Date Swab 12/27/2024 3:34 PM EST Cole Shen MD POINT OF CARE TEST ENTER/ED IT ORDERABLES Final Result * POCT Rapid Influenza B OSOM (12/27/2024 3:33 PM EST) [facility] Rapid Influenza B Ag Negative Negative, Indeterminate QC Media Lot # [id number] Swab 12/27/2024 3:33 PM EST Cole Shen MD POINT OF CARE TEST ENTER/ED IT ORDERABLES Final Result * POCT Rapid Influenza A OSOM (12/27/2024 3:33 PM EST) Rapid Influenza A Ag Negative Negative, Indeterminate QC Media Lot # [id number] Lot# Expiration Date [id number] Swab Nasopharyngeal structure / Unknown 12/27/2024 3:33 PM EST Cole Shen MD POINT OF CARE TEST ENTER/ED IT ORDERABLES Final Result * POCT Rapid Covid-19 BinaxNOW (12/27/2024 3:32 PM EST) [facility] Rapid COVID Ag Negative QC Media Lot # [id number] Lot# Expiration Date [id number] Swab 12/27/2024 3:32 PM EST Cole Shen MD POINT OF CARE TEST ENTER/ED IT ORDERABLES Final Result documented in this encounter Visit Diagnoses Diagnosis Sensation of fullness in both ears- Primary Other infective acute otitis externa of both ears Iron deficiency anemia secondary to inadequate dietary iron intake Psoriasis Other psoriasis documented in this encounter Additional Health Concerns Assessment Noted Time PHQ-9 Depression Total Score: 0 02/13/20 23 10:30 AM EDT documented as of this encounter Care Teams Branch Or Department Chief Librarian Relationship Specialty Start Date End Date Roselia Enrique MD [address] [place] [phone] PCP - General Family Medicine 04/24/22 documented as of this encounter
--- OUTSIDE RECORDS SUMMARY | 2024-12-27 17:26 | XMS_ITS | Encounter Summary ---
Author Organization [facility] Address [address] [place] [address] Care Team Providers Care Patternmaker Name Role Phone Roselia Enrique MD Primary Care Provider [phone] Reason for Visit * Imaging (Routine) - Closed Specialty Diagnoses / Procedures Referred By Contac t Referred To Contact Diagnoses Aortic occlusion (CMS/HCC) Procedures Vascular US duplex aorta/IVC/iliac/grafts complete Stevan Steel MD [address] [place] [address] [facility] Referral ID Status Reason Start Date Expiration Date Visits Re quested Visits Authorized [id number] Closed 12/04/2024 12/04/2025 1 1 Encounter Details Date Type Department Care Team (Latest Contact Info) Description 12/22/2024 7:30 AM EST Ancillary Procedure [facility] [address] [place] [phone] Aortic occlusion (CMS/HCC) Social History Tobacco Use [...] on file documented as of this encounter Plan of Treatment Upcoming Encounters Date Type Department Care Team (Late st Contact Info) Description 01/22/2025 8:30 AM EST Office Visit [facility] [place] [address] [place] [phone] Stevan Steel MD [address] [place] [address] documented as of this encounter Procedures Procedure Name Priority Date/Time Associated Diagnosis Comments VAS US DUPLEX AORTA/IVC/ILIAC/GRA FTS COMPLETE Routine 12/22/2024 7:44 AM EST Aortic occlusion (CMS/HCC) documented in this encounter Results * Vascular US duplex [...] are normal in size and flow velocity. Food Products Tester Details A daniels scale, color and doppler analysis ultrasound was performed. During the study longitudinal and transverse views were obtained. Pulsed wave doppler was performed. Stevan Steel MD CV VASCULAR PROCEDUR ES documented in this encounter Visit Diagnoses Diagnosis Aortic occlusion (CMS/HCC) documented in this encounter Care Teams Patternmaker Relationship Specialty Start Date End Date Roselia Enrique MD [address] [place] [id number] PCP - General 05/27/22 documented as of this encounter
--- OUTSIDE RECORDS SUMMARY | 2024-12-27 17:26 | XMS_ITS | Clinical Summary ---
Author Organization [employer] Address [address] [facility] [address] [place] [address] Care Team Providers Care Pot Maker Name Role Phone Roselia Enrique MD Primary Care Provider [phone] Allergies Active Allergy Reactions Criticality Noted Date Comments Iodinated Contrast Media High 05/22/2022 Other reaction(s): Hives / Skin Rash Medications Aspirin Low Dose 81 MG EC tablet 05/05/20 22 Active cholecalcifero l (Vitamin D-3) 50 MCG (1999) tablet Take by mouth at bed time. 05/25/20 22 Active ferrous sulfate 325 (65 Fe) MG tablet Take 1 tablet by mouth at bed time. Active atorvastatin (Lipitor) 40 MG tabletIndicati ons:Aortic occlusion (CMS/HCC) Take 1 tablet (40 mg) by mouth in the morning. 30 tablet 11 03/13/20 24 025 Active triamcinolone (Kenalog) 0.1 % creamIndicatio ns:Psoriasis Apply topically if needed in the morning and at bedtime (pain and swelling). 30 g 2 03/13/20 24 Active amoxicillin-cl avulanate (Augmentin) 875-125 MG tablet Take 1 tablet by mouth 2 times daily for 10 days. 20 tablet 12/25/19 25 025 Active neomycin-polym yxin-hydrocort isone (Cortisporin) 3.5-26108-3 otic suspensionIndi cations:Other infective acute otitis externa of both ears Administer 4 drops into affected ear(s) 4 times daily for 10 days. 7.5 mL 12/27/19 25 025 Active naproxen (Naprosyn) 500 MG tabletIndicati ons:Other infective acute otitis externa of both ears Take 1 tablet (500 mg) by mouth 2 times daily. 20 tablet 12/27/19 25 025 Active neomycin-polym yxin-hydrocort isone (Cortisporin) 3.5-00792-8 otic suspensionIndi cations:Other infective acute otitis externa of both ears Administer 4 drops into affected ear(s) 4 times daily for 10 days. 7.5 mL 12/27/19 25 025 Discontinued(Re order (will not trigger notification to Pharmacy)) Active Problems Problem Noted Date Diagnosed Date Iron deficiency anemia secon anna marie to inadequate dietary iron intake 02/12/2023 Psoriasis 02/12/2023 Aortic occlusion 12/03/2022 Encounters Date Type Department Care Team Description 12/27/2024 2:40 PM EST Office Visit [facility] [address] [place] [address] Cole Shen MD Sensation of fullness in both ears (Primary Dx); Other infective acute otitis externa of both ears; Iron deficiency anemia secondary to inadequate dietary iron intake; Psoriasis 12/27/2024 Travel 12/27/2024 Telephone [facility] [address] [place], [place] [phone] Roselia Enrique MD Nurse Triage 12/25/2024 Telephone [facility] [address] [place] [address] Roselia Enrique MD from Last 3 Months Immunizations Name Administration Dates Next Due Influenza Injectable Quadriv alant Preservative Free IIV4 MDCK 09/16/2018 Influenza injectable quadrivalent preservative f ree 09/17/2021,09/26/2019 Influenza, IIV3, injectable 09/21/2020, 5 Pneumococcal Conjugate PCV 13 06/25/2022 TD (adult), 2 Lf tetanus tox oid, preservative free, adsorbed 06/25/2022 Tdap 02/19/2012 Social History Tobacco Use Types Packs/Day Years Used Date Smoking Tobacco: Former Cigarettes Q uit: 04/29/2022 Smokeless Tobacco: Never Tobacco Cessation:Counseling Given: Not Answered Alcohol Use Standard Drinks/Week Comments Yes 1 [...] Orientation Straight 02/05/2023 1: 51 PM EST Last Filed Vital Signs Vital Sign Reading Time Taken Comments Blood Pressure 139/80 12/27/2024 2:30 PM EST Pulse 105 12/27/2024 2:30 PM EST Temperature 36.7 ??C (98 ??F) 12/27/2024 2:30 PM EST Respiratory Rate 20 12/27/2024 2:30 PM EST Oxygen Saturation 94% 12/27/2024 2:30 PM EST Inhaled Oxygen Concentration - - Weight 75.8 kg (167 lb) 02/12/2023 10:26 AM EDT Height 157.5 cm (5' 2 ) 02/12/2023 10:26 AM EDT Body Mass Index 30.54 02/12/2023 10:26 AM EDT Plan of Treatment Upcoming Encounters Date Type Department Care Team (Late st Contact Info) Description 01/30/2025 9:30 AM EST Office Visit [facility] [address] [place] [address] Cole Shen MD [address] [place] [address] Health Maintenance Due Date Last Done Comments CT Colonography 1955 Colonoscopy 1955 Colorectal Cancer Screening 1955 FIT DNA/Cologuard 1956 FIT 1956 FOBT 1955 Sigmoidoscopy 1956 Alcohol/Substance Use Screening 1968 Hepatitis C Screening 1974 Zoster Vaccines (1 of 2) 2006 Pneumococcal Vaccine: 50+ Years (2 of 2 - PPSV23) 06/25/2023 06/25/2022 Depression Screening 02/13/2024 02/12/2023, 02/13/20 23 SDOH Screening 02/13/2024 02/12/2023 Tobacco Screening 02/13/2024 02/12/2023 COVID-19 Vaccine ( - season) 2024 04/02/2021, 03/05/2021 Influenza Vaccine (#1) 2024 , 09/21/2020, 09/21/2020, Additional history exists Mammogram 06/20/2026 06/20/2024, 05/29, 06/09/2022 RSV Patients and Patients Aged 60 years or older (1 - 1-dose 75+ series) 2031 DTaP/Tdap/Td Vaccines (3 - Td or Tdap) 06/25/2032 06/25/2022, 02/19/2012 HIB Vaccines Aged Out No longer eligi [...] patient's age to complete this topic Meningococcal Vaccine Aged Out No martín janes eligible based on patient's age to complete this topic RSV under 20 months Aged Out No longe r eligible based on patient's age to complete this topic Rotavirus Vaccines Aged Out No longer eligible based [...] EST Sensation of fullness in both ears BI MAMMOGRAM SCREENING TOMOSYNTHESIS BILATERAL Routine 06/20/2024 9:25 AM EDT from Last 3 Months or Most Recently Relevant to Health Maintenance Results * POCT Rapid Strep A OSOM (12/27/2024 3:34 PM EST) Pathologist [facility] Rapid Strep A Screen Negative Negative, None Detected QC Media Lot # [id number] Lot# Expiration Date Swab 12/27/2024 3:34 PM EST Cole Shen MD POINT OF CARE TEST ENTER/ED IT ORDERABLES Final Result * POCT Rapid Influenza B OSOM (12/27/2024 3:33 PM EST) Pathologist [facility] Rapid Influenza B Ag Negative Negative, Indeterminate QC Media Lot # [id number] Swab 12/27/2024 3:33 PM EST us Cole Shen MD POINT OF CARE TEST ENTER/ED IT ORDERABLES Final Result * POCT Rapid Influenza A OSOM (12/27/2024 3:33 PM EST) [facility] Rapid Influenza A Ag Negative Negative, Indeterminate QC Media Lot # [id number] Lot# Expiration Date [id number] Swab Nasopharyngeal structure / Unknown 12/27/2024 3:33 PM EST us Cole Shen MD POINT OF CARE TEST ENTER/ED IT ORDERABLES Final Result * POCT Rapid Covid-19 BinaxNOW (12/27/2024 3:32 PM EST) [facility] Rapid COVID Ag Negative QC Media Lot # [id number] Lot# Expiration Date [id number] Swab 12/27/2024 3:32 PM EST us Cole Shen MD POINT OF CARE TEST ENTER/ED IT ORDERABLES Final Result * BI Mammogram Screening Tomosynthesis Bilateral (06/20/2024 9:25 AM EDT) Anatomical Region Laterality Modality Breast Bilateral Mammography 06/20/2024 9:25 AM EDT Narrative 07/11/2024 9:41 PM EDT ? [facility] ? [address] ?[place] [address] ? Mammography Report ? Signed ? Patient: Sirard,Miranda ?MR#: [id number] ?? 47 ? : 1955 ?Acct:[id number] ? Age/Sex: 68 / F ?ADM Date: 07/23/24 ? Loc: HO.MAMMO ? Attending Dr: Roselia Enrique MD ? Ordering Physician: Roselia Enrique MD ?Results: 2Benign ?? Findings ? Date of Service: 06/20/24 ?Follow Up: 1 Year From Orig ?? inal Mammogram ? Procedure(s): MM tomosynthesis screening BI ?? Accession Number(s): [id number] ? cc: Roselia Enrique MD ? EXAMINATION: ?? MM SCREENING DIGITAL BREAST TOMOSYNTHESIS, BILATERAL ? CLINICAL INFORMATION: ? Screening. Asymptomatic. ? COMPARISON: ?? Mammography: This study is compared with prior exams dating back to ?? 2018. ? TECHNIQUE: ?? Digital breast tomosynthesis is performed in both the craniocaudal and ?? mediolateral oblique views along with computer-aided detection (CAD). ?? Synthesized 2D images are generated from the tomosynthesis. ? FINDINGS: ?? There are scattered areas of fibroglandular density (ACR BI-RADS breast ?? composition Category b). ? There are no significant masses, abnormal calcifications, or other ?? abnormalities. ? There is a biopsy tissue marker in the left breast. ? MM/MM tomosynthesis screening BI ?? IMPRESSION: ?? No mammographic evidence of malignancy. ? ASSESSMENT: ? BI-RADS BI-RADS 2 - Benign Findings ? RECOMMENDATION: ?? Routine annual mammography screening. ? 1 year F/U ? This examination should not preclude the clinical evaluation of a ?? suspicious palpable abnormality. ? This patient's information was entered into a reminder system with a ?? target due date for their next mammogram. ? Dictated By: ?Viv Ferrera MD ? Signed By: ?<Electronically signed by Viv Ferrera MD in OV> ? 07/11/242136 ? DD/ 4 ? TD/TT: ? Marketing Services Coordinator: ? Procedure Note Donotuseinterpreter, Image - [facility] [address] [place] [address] Mammography Report Signed Patient: Miranda WrightMR#: [id number] [birth year] : 6Acct:[id number] Age/Sex: 68 / FADM Date: 06/20/24 Loc: [facility]ENNY.MAMMO Attending Dr: Roselia Enrique MD Ordering Physician: Roselia Enrique MDResults: 2Benign Findings Date of Service: 06/20/24Follow Up: 1 Year From Orig inal Mammogram Procedure(s): MM tomosynthesis screening BI Accession Number(s): [id number] cc: Roselia Enrique MD EXAMINATION: MM SCREENING DIGITAL BREAST TOMOSYNTHESIS, BILATERAL CLINICAL INFORMATION: Screening. Asymptomatic. COMPARISON: Mammography: This study is compared with prior exams dating back to 2019. TECHNIQUE: Digital breast tomosynthesis is performed in both the craniocaudal and mediolateral oblique views along with computer-aided detection (CAD). Synthesized 2D images are generated from the tomosynthesis. FINDINGS: There are scattered areas of fibroglandular density (ACR BI-RADS breast composition Category b). There are no significant masses, abnormal calcifications, or other abnormalities. There is a biopsy tissue marker in the left breast. MM/MM tomosynthesis screening BI IMPRESSION: No mammographic evidence of malignancy. ASSESSMENT: BI-RADS BI-RADS 2 - Benign Findings RECOMMENDATION: Routine annual mammography screening. 1 year F/U This examination should not preclude the clinical evaluation of a suspicious palpable abnormality. This patient's information was entered into a reminder system with a target due date for their next mammogram. Dictated By: Viv Ferrera MD Signed By: <Electronically signed by Viv Ferrera MD in OV> 07/11/242136 DD/ TD/TT: Marketing Services Coordinator: Roselia Enrique MD IMG BI PROCEDURES Edited Result - Final from Last 3 Months or Most Recently Relevant to Health Maintenance [place] [address] [facility] [employer] [facility] [employer] Care Teams Pot Maker Relationship Specialty Start Date End Date Roselia Enrique MD [address] [place] [phone] PCP - General Family Medicine 04/24/22
[2024-12-27 17:47] LABS: MANUAL DIFF FLAG NO
[2024-12-27 18:21] LABS: Basophils Absolute Auto 0.1 X10*3/uL (0.0-0.2); Basophils Percent Auto 0.6 % (0-2); Eosinophils Absolute Auto 0.2 X10*3/uL (0.0-0.4); Eosinophils Percent Auto 1.9 % (0-4); Hematocrit 46.3 % (37.0-47.0); Hemoglobin 15.5 g/dl (12.0-16.0); Imm Gran Abs Auto 0.03 X10*3/uL (0.00-0.03); Imm Gran Pct Auto 0.3 % (0.0-0.4); Lymphocytes Absolute Auto 2.7 X10*3/uL (1.2-4.9); Lymphocytes Percent Auto 28.4 % (20-40); Mean Corpuscular HGB Conc 33.5 g/dl (31.0-35.0); Mean Corpuscular Hemoglobin 31.6 pg (27.0-33.0); Mean Corpuscular Volume 94.5 fL (80.0-98.0); Mean Platelet Volume 10.6 fL (9.4-12.3); Monocytes Absolute Auto 0.7 X10*3/uL (0.1-1.2); Monocytes Percent Auto 7.3 % (2-11); Neutrophils Absolute Auto 5.8 x10*3/uL (2.0-8.3); Neutrophils Percent Auto 61.5 % (45-73); Platelet Count 422 X10*3/uL (160-400); Red Cell Distribution Width 13.2 % (11.0-16.0); White Blood Count 9.5 X10*3/uL (4.8-10.8)
[2024-12-27 18:23] LABS: Alanine Aminotransferase 33 U/L (0-31); Albumin Level 4.4 g/dL (3.5-5.0); Alkaline Phosphatase 138 U/L (39-117); Anion Gap 12 (12-20); Aspartate Amino Transferase 26 U/L (5-31); Bilirubin Total 0.3 mg/dL (0.0-1.0); Blood Urea Nitrogen 12 mg/dL (9-16); Calcium 9.9 mg/dL (8.4-10.2); Carbon Dioxide 26 mmol/L (22-29); Chloride 106 mmol/L (96-108); Cholesterol 174 mg/dL (<200); Estimated Glomerular Filt Rate > 60; Glucose Random 101 mg/dL (60-115); HDL Cholesterol 46 mg/dL (>40); LDL Cholesterol Calculated 91 mg/dL (<100); Sodium 140 mmol/L (135-145); Total Protein 7.7 g/dL (6.5-8.0); Triglycerides 185 mg/dL (<150)
[2024-12-27 18:27] LABS: TSH reflex Free T4 1.54 uIU/mL (0.32-4.0)
== END 2024-12-27 15:33 | disposition home or self-care (01) ==
LOC: HO.CHCLDS 15:32
PROVIDERS: Visit Provider Internal Medicine
DX: L40.9 Psoriasis, unspecified (principal); D50.8 Other iron deficiency anemias
CPT/HCPCS: 36415; 80053; 80061; 84443; 85025

== ENCOUNTER 2024-12-27 16:21 | Outpatient (REF) | payer OTHER, SELFPAY ==
[2024-12-27 18:18] LABS: Influenza A PCR NEGATIVE (Negative); Influenza B PCR NEGATIVE (Negative); Resp Syncy Virus RNA Qual PCR NEGATIVE (Negative); SARS COV2 PCR INHOUSE NEGATIVE (Negative)
== END 2024-12-27 16:22 | disposition home or self-care (01) ==
LOC: HO.CHCLNP 16:21
PROVIDERS: Visit Provider Internal Medicine
DX: H93.8X3 Other specified disorders of ear, bilateral (principal)
CPT/HCPCS: 0241U

== ENCOUNTER 2025-01-04 11:21 | Outpatient (REF) | payer OTHER, SELFPAY ==
--- NOTE | ~2025-01-04 | US_ITS ---
CLINICAL HISTORY: Elevated alkaline phosphatase US abdomen complete Comparison: None Findings: The visualized pancreas is normal. The aorta and inferior vena cava are normal caliber. Dense increased echotexture throughout the liver without focal lesion or intrahepatic ductal dilatation. The common duct is 2.4 mm in diameter. The gallbladder is normal. There is no sonographic Mata sign. The main portal vein is antegrade. The right kidney is 10.1 cm in length. The left kidney is 10.1 cm in length. The spleen is normal. No ascites. IMPRESSION: 1. Increased hepatic echotexture. This can be seen with fatty infiltration or medical liver disease. 2. Otherwise, unremarkable abdominal ultrasound. This document has been electronically signed by: Domingo Rubi MD on 01/06/2025 09:19:13
--- OUTSIDE RECORDS SUMMARY | 2025-01-04 11:24 | XMS_ITS | Clinical Summary ---
Author Organization [address] [place] [address] Address [address] [place] [address] Phone Care Team Providers Care Spring Maker Name Role Phone Roselia Enrique MD Primary Care Provider [phone] Allergies Active Allergy Reactions Criticality Noted Date [...] Encounters Date Type Department Care Team Description 12/30/2024 6:23 AM EST - 12/30/2024 11:26 AM EST Emergency [facility] Emergency [address] [place] [phone] Discharge Disposition: Left Against Medical Advice 12/22/2024 7:30 AM EST Ancillary Procedure [facility] - [address] [place] [phone] Aortic occlusion ([facility]) 12/04/2024 Telephone V[facility] Surgery - [place] [address] [place] [phone] Stevan Steel MD Imaging Follow-up; Testing from [...] Site/Laterality Comments OTHER SURGICAL HISTORY 1994 PROCEDURE: OR TOTAL ABDOMINAL HYSTERECT W/WO RMVL TUBE OVARY OTHER SURGICAL HISTORY 2009 PROCEDURE: PARTIAL REMOVAL OF THYROI KIDNEY STONE SURGERY 1979 PROCEDURE: OR NEPHROLITHOTOMY REMOVAL CALCULUS APPENDECTOMY 1994 PROCEDURE: HISTORICAL APPENDECTOMY OTHER SURGICAL HISTORY PROCEDURE: OR COLECTOMY PARTIAL W/ANASTOMOSIS OTHER SURGICAL HISTORY 05/11/2022 PROCEDURE: OR TEAEC W/WO PATCH GRAFT ABDOMINAL AORTA; COMMENT: Infrarenal aortic edarterectomy with bovine pericardial patch angioplasty OTHER SURGICAL HISTORY 05/11/2022 PROCEDURE: OR ENTEROLSS FRING INTSTINAL ADHESION SPX; COMMENT: Extensive [...] Sign Reading Time Taken Comments Blood Pressure 127/76 12/30/2024 6:36 AM EST Pulse 73 12/30/2024 6:36 AM EST Temperature 36.5 ??C (97.7 ??F) 12/30/2024 6:36 AM ES T Respiratory Rate 17 12/30/2024 6:36 AM EST Oxygen Saturation 98% 12/30/2024 6:36 AM EST Inhaled Oxygen Concentration - - Weight 77.1 kg (170 lb) 12/30/2024 6:36 AM EST Height 160 cm (5' 3 ) 12/30/2024 6:36 AM EST Body Mass Index 30.11 12/30/2024 6:36 AM EST Plan of Treatment Upcoming Encounters Date Type Department Care Team (Late st Contact Info) Description 01/22/2025 8:30 AM EST Office Visit Vascular Surgery [place] [address] [place] [phone] Stevan Steel MD [address] [place] [address] Health Maintenance Due Date Last Done Comments Zoster Vaccines (1 of 2) 2006 Breast Cancer Screening 08/23/2021 08/23/2019 Falls Risk Assessment 11/07/2022 Lung Cancer Screening (Low Dose CT) 11/07/2022 Medicare Annual Wellness Visit 11/07/2022 Social Influencers of Health Screening 11/07/2022 Pneumococcal Vaccine: 65+ Years (2 of 2 - PPSV23 or PCV20) 06/25/2023 06/25/2022 Depression Screening 02/13/2024 02/12/2023 COVID-19 Vaccine (3 - season) 2024 04/02/2021, 03/05/2021 Influenza Vaccine (#1) 2024 , 09/21/2020, 09/26/2019, Additional history exists Colorectal Cancer Screening: Colonoscopy 01/30/2026 01/30/2021 Osteoporosis Screening (Bone Density Screening) 08/24/2029 08/24/2019 Cholesterol Screening (Lipid Panel) 12/27/2029 12/27/2024, 01/06/2017 RSV Immunization Patients 60+ Years Old (1 [...] Procedure Name Priority Date/Time Associated Diagnosis Comments CBC WITH AUTO DIFFERENTIAL STAT 12/30/2024 6:32 AM EST B-TYPE NATRIURETIC PEPTIDE STAT 12/30/2024 6:32 AM EST MAGNESIUM STAT 12/30/2024 6:32 AM EST LIPASE STAT 12/30/2024 6:32 AM EST COMPREHENSIVE METABOLIC PANEL STAT 12/30/2024 6:32 AM EST CBC AND DIFFERENTIAL STAT 12/30/2024 6:32 AM EST TROPONIN I HIGH SENSITIVITY STAT 12/30/2024 6:32 AM EST ECG 12-LEAD STAT 12/30/2024 6:30 AM EST ECG ANNOTATED 12/30/2024 VAS US DUPLEX AORTA/IVC/ILIAC/GRAFTS COMPLETE Routine 12/22/2024 7:44 AM EST Aortic occlusion (CMS/HCC) COLONOSCOPY Routine 01/30/2021 [facility] DEXA AXIAL SKELETON Routine 08/24/2019 5:09 PM EDT Asymptomatic menopausal state [facility] SCREENING DIGITAL Routine 08/23/2019 9:36 AM EDT Encounter for screening mammogram for malignant neoplasm of breast LIPID PANEL Routine 01/06/2017 HEPATITIS C SCREENING Routine 06/29/2015 from Last 3 Months or Most Recently Relevant to Health Maintenance Results * Troponin I high sensitivity (12/30/2024 6:32 AM EST) High Sensitivity Troponin I 3 <=54 ng/L LAB CHEMISTRY METHOD 12/30/2024 7:11 AM EST [facility] Blood Venous blood specimen / Unknown Venipuncture / Unknown 12/30/2024 6:32 AM EST 12/30/2024 6:41 AM EST Narrative [facility] - 12/30/2024 7:11 AM EST High levels of biotin in samples may falsely decrease hsTroponin values. ??Use caution when interpreting hsTroponin results in patients taking biotin who exhibit renal impairment (eGFR <60) or in patients taking more than 20 mg/day of biotin. Santa Guillen MD LAB BLOOD ORDERA BLES [facility] [address] [place] [address], * (ABNORMAL) CBC auto differential (12/30/2024 6:32 AM EST) WBC 13.4(H) 4.8 - 10.8 K/mcL LAB HEMETOLOGY METHOD 12/30/2024 6:47 AM [facility] RBC 4.60 3.80 - 4.80 M/mcL LAB HEMETOLOGY METHOD 12/30/2024 6:47 AM [facility] Hemoglobin 14.8 11.5 - 16.0 g/dL LAB HEMETOLOGY METHOD 12/30/2024 6:47 AM [facility] Hematocrit 44.1 35.0 - 47.0 % LAB HEMETOLOGY METHOD 12/30/2024 6:47 AM [facility] MCV 95.2 79.0 - 98.0 FL LAB HEMETOLOGY METHOD 12/30/2024 6:47 AM [facility] MCH 32.0 27.0 - 32.0 pcg LAB HEMETOLOGY METHOD 12/30/2024 6:47 AM [facility] MCHC 33.6 32.0 - 37.0 g/dL LAB HEMETOLOGY METHOD 12/30/2024 6:47 AM [facility] RDW 13.0 11.0 - 15.0 % LAB HEMETOLOGY METHOD 12/30/2024 6:47 AM [facility] Platelets 409(H) 130 - 400 K/mcL LAB HEMETOLOGY METHOD 12/30/2024 6:47 AM [facility] MPV 9.8 7.0 - 11.0 FL LAB HEMETOLOGY METHOD 12/30/2024 6:47 AM [facility] NRBC 0.0 <1.0 % LAB HEMETOLOGY METHOD 12/30/2024 6:47 AM [facility] NRBC Absolute 0.00 <0.10 K/mcL LAB HEMETOLOGY METHOD 12/30/2024 6:47 AM [facility] Neutrophils Relative 80.2 % LAB HEMETOLOGY METHOD 12/30/2024 6:47 AM [facility] Lymphocytes Relative 11.9 % LAB HEMETOLOGY METHOD 12/30/2024 6:47 AM [facility] Monocytes Relative 6.7 % LAB HEMETOLOGY METHOD 12/30/2024 6:47 AM [facility] Eosinophils Relative 0.4 % LAB HEMETOLOGY METHOD 12/30/2024 6:47 AM [facility] Basophils Relative 0.3 % LAB HEMETOLOGY METHOD 12/30/2024 6:47 AM [facility] Immature Granulocytes Relative 0.5 % LAB HEMETOLOGY METHOD 12/30/2024 6:47 AM [facility] Neutrophils Absolute 10.72(H) 1.50 - 7.00 K/mcL LAB HEMETOLOGY METHOD 12/30/2024 6:47 AM [facility] Lymphocytes Absolute 1.59 1.00 - 5.00 K/mcL LAB HEMETOLOGY METHOD 12/30/2024 6:47 AM [facility] Monocytes Absolute 0.90 0.20 - 1.00 K/mcL LAB HEMETOLOGY METHOD 12/30/2024 6:47 AM [facility] Eosinophils Absolute 0.05 0.00 - 0.50 K/mcL LAB HEMETOLOGY METHOD 12/30/2024 6:47 AM [facility] Basophils Absolute 0.04 0.00 - 0.20 K/[facility] LAB HEMETOLOGY METHOD 12/30/2024 6:47 AM EST [facility] Immature Granulocytes Absolute 0.07(H) 0.00 - 0.03 K/[facility] LAB HEMETOLOGY METHOD 12/30/2024 6:47 AM EST [facility] Blood Venous blood specimen / Unknown Venipuncture / Unknown 12/30/2024 6:32 AM EST 12/30/2024 6:41 AM EST Santa Guillen MD LAB BLOOD ORDERA BLES [facility] [address] [place] [address], * B-type natriuretic peptide (12/30/2024 6:32 AM EST) BNP 23 <=100 pcg/mL LAB CHEMISTRY METHOD 12/30/2024 7:19 AM EST [facility] Blood Venous blood specimen / Unknown Venipuncture / Unknown 12/30/2024 6:32 AM EST 12/30/2024 6:41 AM EST Santa Guillen MD LAB BLOOD ORDERA BLES [facility] [address] [place] [address], [place] [phone] * Magnesium (12/30/2024 6:32 AM EST) Magnesium 2.1 1.9 - 2.6 mg/dL LAB CHEMISTRY METHOD 12/30/2024 7:20 AM EST [facility] Blood Venous blood specimen / Unknown Venipuncture / Unknown 12/30/2024 6:32 AM EST 12/30/2024 6:41 AM EST Santa Guillen MD LAB BLOOD ORDERA BLES Performing Organization Address [facility]/ZIP Co de Phone Number [facility] [address] [place] [address], [place] [phone] * Lipase (12/30/2024 6:32 AM EST) Lipase 28 13 - 75 unit/L LAB CHEMISTRY METHOD 12/30/2024 7:20 AM EST [facility] Blood Venous blood specimen / Unknown Venipuncture / Unknown 12/30/2024 6:32 AM EST 12/30/2024 6:41 AM EST Santa Guillen MD LAB BLOOD ORDERA BLES Performing Organization Address [facility]/ZIP Co de Phone Number [facility] [address] [place] [address], [place] [phone] * (ABNORMAL) Comprehensive metabolic panel (12/30/2024 6:32 AM EST) [facility] Sodium 137 133 - 145 mmol/L LAB CHEMISTRY METHOD 12/30/2024 7:20 AM [facility] Potassium 4.2 3.5 - 5.5 mmol/L LAB CHEMISTRY METHOD 12/30/2024 7:20 AM [facility] Chloride 105 96 - 110 mmol/L LAB CHEMISTRY METHOD 12/30/2024 7:20 AM [facility] CO2 28 21 - 32 mmol/L LAB CHEMISTRY METHOD 12/30/2024 7:20 AM [facility] Anion Gap 4 3 - 11 LAB CHEMISTRY METHOD 12/30/2024 7:20 AM [facility] Glucose 119(H) 70 - 100 mg/dL LAB CHEMISTRY METHOD 12/30/2024 7:20 AM [facility] BUN 15 5 - 25 mg/dL LAB CHEMISTRY METHOD 12/30/2024 7:20 AM [facility] Creatinine 0.95 0.50 - 1.10 mg/dL LAB CHEMISTRY METHOD 12/30/2024 7:20 AM [facility] eGFR 65 >=60 mL/min/1. 73m2 LAB CHEMISTRY METHOD 12/30/2024 7:20 AM [facility] Comment:Calculation based on the??Chronic Kidney Disease Epidemiology Collaboration (CKD-EPI) equation refit??without adjustment for race. BUN/Creatinine Ratio 15.8 LAB CHEMISTRY METHOD 12/30/2024 7:20 AM [facility] Calcium 9.3 8.5 - 10.5 mg/dL LAB CHEMISTRY METHOD 12/30/2024 7:20 AM [facility] AST (SGOT) 13 10 - 42 unit/L LAB CHEMISTRY METHOD 12/30/2024 7:20 AM [facility] ALT (SGPT) 29 10 - 60 unit/L LAB CHEMISTRY METHOD 12/30/2024 7:20 AM [facility] Alkaline Phosphatase 135(H) 42 - 121 unit/L LAB CHEMISTRY METHOD 12/30/2024 7:20 AM [facility] Total Protein 7.2 6.0 - 8.0 g/dL LAB CHEMISTRY METHOD 12/30/2024 7:20 AM [facility] Albumin 4.0 3.2 - 5.0 g/dL LAB CHEMISTRY METHOD 12/30/2024 7:20 AM [facility] Total Bilirubin 0.4 0.0 - 1.4 mg/dL LAB CHEMISTRY METHOD 12/30/2024 7:20 AM [facility] Blood Venous blood specimen / Unknown Venipuncture / Unknown 12/30/2024 6:32 AM EST 12/30/2024 6:41 AM EST Santa Guillen MD LAB BLOOD ORDERA BLES [facility] [address] [place] [address], [place] [phone] * ECG 12 lead (12/30/2024 6:30 AM EST) Ventricular Rate ECG 91 BPM GEMUSE Atrial Rate 91 BPM GEMUSE P-R Interval 130 ms GEMUSE QRS Duration 66 ms GEMUSE Q-T Interval 376 ms GEMUSE QTc 462 ms GEMUSE P Wave [place] 19 degrees GEMUSE R [place] 9 degrees GEMUSE T [place] 62 degrees GEMUSE ECG Interpretation Normal sinus rhythm Possible Left atrial enlargement Nonspecific T wave abnormality Borderline ECG When compared with ECG of 05-MAY-2022 14:52, T wave inversion no longer evident in Anterior leads Confirmed by CHRIS BLANCO ([id number]) on 12/31/2024 2:49:58 PM GEMUSE 12/30/2024 6:30 AM EST 12/31/2024 2:49 PM EST Santa Guillen MD ECG ORDERABLES GEMUSE * ECG-Annotated (12/30/2024) Provider Onbase ECG ORDERABLES * Vascular US duplex aorta/IVC/iliac/grafts complete (12/22/2024 [...] are normal in size and flow velocity. Cloth Examiner Details A daniels scale, color and doppler analysis ultrasound was performed. During the study longitudinal and transverse views were obtained. Pulsed wave doppler was performed. Stevan Steel MD VASCULAR PROCEDUR ES * Colonoscopy (01/30/2021) [facility] Colonoscopy Abstracted. No Interpretation Anatomical Region Laterality Modality Other Historical Provider [facility] E * [facility] DEXA AXIAL SKELETON (08/24/2019 5:09 PM EDT) Anatomical Region Laterality Modality Mammography 08/23/2019 7:47 AM EDT Narrative 08/24/2019 5:09 PM EDT [facility] Diagnostic Imaging Department [address] [place], [place] [id number] Patient: ??OMAYRA WRIGHT ?/Age/Sex: 1955 - 63 - F Unit#: ??[id number] ? Location/Status: ??SPDIMAM/REG CLI ? Mnemonic/Ordering Site: ??MAMDEXAAX/SPMAM Ordering Physician: ??ESTHER CROOKS MD [facility] Dexa Axial Skeleton - 08/23/19 - 0856 [facility] Dexa Axial Skeleton INDICATION: POSTMENOPAUSAL Technique: Bone [...] FRAX estimate if patient has received treatment. [id number] A report detailing these results has been enclosed. Dictating Physician: ??KIZZY HERRERA MD Electronically Signed by: ??KIZZY HERRERA MD Dic Date/Time: ??08/24/191707 Sign date/Time: ??08/24/191708 Procedure Note Kizzy Herrera - 11/18/2022 [facility] Diagnostic Imaging Department [address] [place], [place] [id number] Patient: OMAYRA WRIGHT Lisa ChristiansenB./Age/Sex: 1955 - 63 - F Unit#: [id number] [facility] Mnemonic/Ordering Site: MAMDEXAAX/SPMAM Ordering Physician: SETHER CROOKS MD [facility] Dexa Axial Skeleton - 08/23/19 - 0856 [facility] Dexa Axial Skeleton INDICATION: POSTMENOPAUSAL Technique: Bone [...] than FRAXestimate if patient has received treatment. [id number] A report detailing these results has been enclosed. Dictating Physician: KIZZY HERRERA MD Electronically Signed by: KIZZY HERRERA MD Dic Date/Time: 08/24/191707 Sign date/Time: 08/24/191708 Esther Crooks MD IMG BI PROCEDURES * ROGELIO SCREENING DIGITAL (08/23/2019 9:36 AM EDT) Anatomical Region Laterality Modality Mammography 08/23/2019 7:49 AM EDT Narrative 08/23/2019 9:36 AM EDT [facility] Diagnostic Imaging Department [address] [place] [address] Patient: ??OMAYRA WRIGHT ?/Age/Sex: 1955 - 63 - F Unit#: ??[id number] ? Location/Status: ??SPDIMAM/REG CLI ? Mnemonic/Ordering Site: ??DIGSC/SPMAM Ordering Physician: ??ESTHER CROOKS MD Rogelio Screening Digital - 08/23/19 - 08 History: Bilateral breast cancer screening. Technique: Digital mammography. Conventional CC and MLO projections with tomosynthesis MLO views and computer aided detection. Comparison made with previous mammograms from [facility] 01/13/2017 through 01/16/2005. Findings: Breast tissue consists of a heterogenous combination of ??fatty and fibroglandular tissue, potentially obscuring small lesions, category c density. There are benign calcifications bilaterally. No suspicious group of microcalcification, suspicious mass, concerning focal asymmetry, architectural distortion or concerning change in breast density affecting either breast. Impression: ??No evidence of malignancy. BIRADS category 2; benign findings, 3342F [id number], [address] A negative mammogram in the face of a clinically suspicious abnormality does not exclude the possibility of malignancy nor alter the indications for biopsy. Note: Patient information entered ??into a reminder system with a target due date for the next mammogram; PQRI II 4662P Dictating Physician: ??ALEXSANDER MATHIS MD Electronically Signed by: ??ALEXSANDER MATHIS MD Dic Date/Time: ??08/23/19934 Sign date/Time: ??08/23/19935 Procedure Note Alexsander Mathis - 11/18/2022 [facility] Diagnostic Imaging Department [address] [place], [place] [address] Patient: OMAYRA WRIGHT /Age/Sex: 1955 - 63 - F Unit#: [id number] Location/Status: SPDIMAM/REG CLI Mnemonic/Ordering Site: [facility] Ordering Physician: ESTHER CROOKS MD Rogelio Screening Digital - 08/23/19806 History: Bilateral breast cancer screening. Technique: Digital mammography. Conventional CC and MLO projections with tomosynthesis MLO views and computer aided detection. Comparison made with previous mammograms from [facility]/13/2017 through 01/16/2005. Findings: Breast tissue consists of a heterogenous combination of fattyand fibroglandular tissue, potentially obscuring small lesions, category cdensity. There are benign calcifications bilaterally. No suspicious group of microcalcification, suspicious mass, concerning focal asymmetry,architectural distortion or concerning change in breast density affecting eitherbreast. Impression: No evidence of malignancy. BIRADS category 2; benign findings, 3342F 91063, [address]393 A negative mammogram in the face of a clinically suspicious abnormalitydoes not exclude the possibility of malignancy nor alter the indications forbiopsy. Note: Patient information entered into a reminder system with a targetdue date for the next mammogram; PQRI II 7000G Dictating Physician: ALEXSANDER MATHIS MD Electronically Signed by: ALEXSANDER MATHIS MD Dic Date/Time: 08/23/19934 Sign date/Time: 08/23/19935 Esther Crooks MD IMG BI PROCEDURES * (ABNORMAL) Lipid panel (01/06/2017) LDL/HDL Ratio 7(A) 0 - 4 Triglycerides 218(A) 0 - 150 mg/dL Cholesterol 288(A) 0 - 200 mg/dL HDL 43 40 mg/dL LDL Cholesterol 202(A) 0 - 100 mg/dL Blood Venous blood specimen / Unknown Historical Provider LAB BLOOD ORDERAB LES * Hepatitis C Screening (06/29/2015) Pathologist [facility] Hepatitis C Screening Abstracted Historical Provider HEALTH MAINTENANC E from Last 3 Months or Most Recently Relevant to Health Maintenance Advance Directives Documents on File Type Date Recorded Patient [employer] Expl anation Health Care Decision (hx) 05/11/2022 [...] (hx) 05/11/2022 AD SHAHID DIRECTIVE Care Teams Spring Maker Relationship Specialty Start Date End Date Roselia Enrique MD [address] [place] [address] PCP - General 05/27/22
--- OUTSIDE RECORDS SUMMARY | 2025-01-04 11:24 | XMS_ITS | Encounter Summary ---
Author Organization [employer] Address [address] [facility] [address] [place] [address] Care Team Providers Care Jd Edwards Consultant Name Role Phone Roselia Enrique MD Primary Care Provider [phone] Reason for Visit * Reason Comments Med Change Request Encounter Details Date Type Department Care Team (Late Contact Info) Description 12/31/2022 Refill [facility] [address] [place], [place] [phone] Roselia Enrique MD [address] [place] [address] Aortic occlusion (CMS/HCC) Social History Tobacco Use [...] Description 01/30/2025 9:30 AM EST Office Visit [facility] [address] [place] [address] Cole Shen MD [address] [place], [place] [phone] documented as of this encounter Visit Diagnoses Diagnosis Aortic occlusion (CMS/HCC) documented in this encounter Care Teams Jd Edwards Consultant Relationship Specialty Start Date End Date Roselia Enrique MD [address] [place] [address] PCP - General Family Medicine 04/24/22 documented as of this encounter
--- OUTSIDE RECORDS SUMMARY | 2025-01-04 11:24 | XMS_ITS | Encounter Summary ---
Author Organization [employer] Address [address] [place] [address] Care Team Providers Care Nip Wrapper Name Role Phone Roselia Enrique MD Primary Care Provider [phone] Reason for Visit * Reason Comments Chest Pain Pt comes in with demetri st tightness that started last night at rest felt like heart burn Pt also states had some n/v. Took antiacids without relief. Pressure mid strenal, and radiates to upper back Denies SOB Encounter Details Date Type Department Care Team (Late st Contact Info) Description 12/30/2024 6:23 AM EST - 12/30/2024 11:26 AM EST [facility] Emergency [address] [place] [address] Discharge Disposition: Left Against Medical Advice Social History Tobacco Use Types Packs/Day Years [...] on file documented as of this encounter Last Filed [...] Mass Index 30.11 12/30/2024 6:36 AM EST documented in this encounter Medications at Time of Discharge Medication Sig Dispensed Refills Start Date End Date cholecalciferol, vitamin D3, (VITAMIN D3 ORAL) Take 1,000 mg by mouth 1 (one) time each day. IRON-FOLIC ACID ORAL Take by mouth daily. documented as of this encounter Discharge Disposition Disposition Code Departure Means Destination Left Against Medical Advice documented in this encounter Progress Notes * Mary Lou Wharton RN - 12/30/2024 6:36 AM EST Pt comes in with chest tightness that started last night at rest felt like heart burn Pt also states had some n/v. Took antiacids without relief. Pressure mid strenal, and radiates to upper back Denies SOB documented in this encounter Plan of Treatment Upcoming Encounters Date Type Department Care Team (Late st Contact Info) Description 01/22/2025 8:30 AM EST Office Visit [facility] [place] [address] [place] [phone] Stevan Steel MD [address] [place] [address] documented as of this encounter Procedures Procedure Name Priority Date/Time Associated Diagnosis Comments TROPONIN I HIGH SENSITIVITY STAT 12/30/2024 6:32 AM EST CBC WITH AUTO DIFFERENTIAL STAT 12/30/2024 6:32 AM EST CBC AND DIFFERENTIAL STAT 12/30/2024 6:32 AM EST B-TYPE NATRIURETIC PEPTIDE STAT 12/30/2024 6:32 AM EST MAGNESIUM STAT 12/30/2024 6:32 AM EST LIPASE STAT 12/30/2024 6:32 AM EST COMPREHENSIVE METABOLIC PANEL STAT 12/30/2024 6:32 AM EST ECG 12-LEAD STAT 12/30/2024 6:30 AM EST ECG ANNOTATED 12/30/2024 documented in this encounter Results * (ABNORMAL) CBC auto differential (12/30/2024 6:32 AM EST) [facility] WBC 13.4(H) 4.8 - 10.8 K/mcL LAB HEMETOLOGY METHOD 12/30/2024 6:47 AM [facility] RBC 4.60 3.80 - 4.80 M/mcL LAB HEMETOLOGY METHOD 12/30/2024 6:47 AM [facility] Hemoglobin 14.8 11.5 - 16.0 g/dL LAB HEMETOLOGY METHOD 12/30/2024 6:47 AM [facility] Hematocrit 44.1 35.0 - 47.0 % LAB HEMETOLOGY METHOD 12/30/2024 6:47 AM [facility] MCV 95.2 79.0 - 98.0 FL LAB HEMETOLOGY METHOD 12/30/2024 6:47 AM [facility] MCH 32.0 27.0 - 32.0 pcg LAB HEMETOLOGY METHOD 12/30/2024 6:47 AM [facility] MCHC 33.6 32.0 - 37.0 g/dL LAB HEMETOLOGY METHOD 12/30/2024 6:47 AM [facility] RDW 13.0 11.0 - 15.0 % LAB HEMETOLOGY METHOD 12/30/2024 6:47 AM [facility] Platelets 409(H) 130 - 400 K/mcL LAB HEMETOLOGY METHOD 12/30/2024 6:47 AM [facility] MPV 9.8 7.0 - 11.0 FL LAB HEMETOLOGY METHOD 12/30/2024 6:47 AM [facility] NRBC 0.0 <1.0 % LAB HEMETOLOGY METHOD 12/30/2024 6:47 AM [facility] NRBC Absolute 0.00 <0.10 K/mcL LAB HEMETOLOGY METHOD 12/30/2024 6:47 AM [facility] Neutrophils Relative 80.2 % LAB HEMETOLOGY METHOD 12/30/2024 6:47 AM [facility] Lymphocytes Relative 11.9 % LAB HEMETOLOGY METHOD 12/30/2024 6:47 AM [facility] Monocytes Relative 6.7 % LAB HEMETOLOGY METHOD 12/30/2024 6:47 AM [facility] Eosinophils Relative 0.4 % LAB HEMETOLOGY METHOD 12/30/2024 6:47 AM [facility] Basophils Relative 0.3 % LAB HEMETOLOGY METHOD 12/30/2024 6:47 AM [facility] Immature Granulocytes Relative 0.5 % LAB HEMETOLOGY METHOD 12/30/2024 6:47 AM [facility] Neutrophils Absolute 10.72(H) 1.50 - 7.00 K/mcL LAB HEMETOLOGY METHOD 12/30/2024 6:47 AM [facility] Lymphocytes Absolute 1.59 1.00 - 5.00 K/mcL LAB HEMETOLOGY METHOD 12/30/2024 6:47 AM [facility] Monocytes Absolute 0.90 0.20 - 1.00 K/mcL LAB HEMETOLOGY METHOD 12/30/2024 6:47 AM [facility] Eosinophils Absolute 0.05 0.00 - 0.50 K/mcL LAB HEMETOLOGY METHOD 12/30/2024 6:47 AM EST [facility] Basophils Absolute 0.04 0.00 - 0.20 K/mcL LAB HEMETOLOGY METHOD 12/30/2024 6:47 AM EST [facility] Immature Granulocytes Absolute 0.07(H) 0.00 - 0.03 K/mcL LAB HEMETOLOGY METHOD 12/30/2024 6:47 AM EST [facility] Blood Venous blood specimen / Unknown Venipuncture / Unknown 12/30/2024 6:32 AM EST 12/30/2024 6:41 AM EST Santa Guillen MD LAB BLOOD ORDERA BLES Performing Organization Address [facility]/ZIP Co de Phone Number [facility] [address] [place] [address], * Troponin I high sensitivity (12/30/2024 6:32 AM EST) [facility] High Sensitivity Troponin I 3 <=54 ng/L LAB CHEMISTRY METHOD 12/30/2024 7:11 AM EST [facility] Blood Venous blood specimen / Unknown Venipuncture / Unknown 12/30/2024 6:32 AM EST 12/30/2024 6:41 AM EST Narrative [facility] - 12/30/2024 7:11 AM EST High levels of biotin in samples may falsely decrease hsTroponin values. ??Use caution when interpreting hsTroponin results in patients taking biotin who exhibit renal impairment (eGFR <60) or in patients taking more than 20 mg/day of biotin. Santa Guillen MD LAB BLOOD ORDERA BLES Performing Organization Address City/[facility]/ZIP Co de Phone Number [facility] [address] [place] [address], * B-type natriuretic peptide (12/30/2024 6:32 AM EST) BNP 23 <=100 pcg/mL LAB CHEMISTRY METHOD 12/30/2024 7:19 AM EST [facility] Blood Venous blood specimen / Unknown Venipuncture / Unknown 12/30/2024 6:32 AM EST 12/30/2024 6:41 AM EST Santa Guillen MD LAB BLOOD ORDERA BLES [facility] [address] [place] [address], [place] [phone] * Magnesium (12/30/2024 6:32 AM EST) [facility] Magnesium 2.1 1.9 - 2.6 mg/dL LAB CHEMISTRY METHOD 12/30/2024 7:20 AM EST [facility] Blood Venous blood specimen / Unknown Venipuncture / Unknown 12/30/2024 6:32 AM EST 12/30/2024 6:41 AM EST Santa Guillen MD LAB BLOOD ORDERA BLES Performing Organization Address [facility]/ZIP Co de Phone Number [facility] [address] [place] [address], [place] [phone] * Lipase (12/30/2024 6:32 AM EST) [facility] Lipase 28 13 - 75 unit/L LAB CHEMISTRY METHOD 12/30/2024 7:20 AM EST [facility] Blood Venous blood specimen / Unknown Venipuncture / Unknown 12/30/2024 6:32 AM EST 12/30/2024 6:41 AM EST Santa Guillen MD LAB BLOOD ORDERA BLES Performing Organization Address City/[facility]/ZIP Co de Phone Number [facility] [address] [place] [address], * (ABNORMAL) Comprehensive metabolic panel (12/30/2024 6:32 AM EST) Sodium 137 133 - 145 mmol/L LAB CHEMISTRY METHOD 12/30/2024 7:20 AM [facility] Potassium 4.2 3.5 - 5.5 mmol/L LAB CHEMISTRY METHOD 12/30/2024 7:20 AM [facility] Chloride 105 96 - 110 mmol/L LAB CHEMISTRY METHOD 12/30/2024 7:20 AM [facility] CO2 28 21 - 32 mmol/L LAB CHEMISTRY METHOD 12/30/2024 7:20 AM [facility] Anion Gap 4 3 - 11 LAB CHEMISTRY METHOD 12/30/2024 7:20 AM [facility] Glucose 119(H) 70 - 100 mg/dL LAB CHEMISTRY METHOD 12/30/2024 7:20 AM [facility] BUN 15 5 - 25 mg/dL LAB CHEMISTRY METHOD 12/30/2024 7:20 AM [facility] Creatinine 0.95 0.50 - 1.10 mg/dL LAB CHEMISTRY METHOD 12/30/2024 7:20 AM [facility] eGFR 65 >=60 mL/min/1. 73m2 LAB CHEMISTRY METHOD 12/30/2024 7:20 AM [facility] Comment:Calculation based on the??Chronic Kidney Disease Epidemiology Collaboration (CKD-EPI) equation refit??without adjustment for race. BUN/Creatinine Ratio 15.8 LAB CHEMISTRY METHOD 12/30/2024 7:20 AM [facility] Calcium 9.3 8.5 - 10.5 mg/dL LAB CHEMISTRY METHOD 12/30/2024 7:20 AM [facility] AST (SGOT) 13 10 - 42 unit/L LAB CHEMISTRY METHOD 12/30/2024 7:20 AM [facility] ALT (SGPT) 29 10 - 60 unit/L LAB CHEMISTRY METHOD 12/30/2024 7:20 AM EST [facility] Alkaline Phosphatase 135(H) 42 - 121 unit/L LAB CHEMISTRY METHOD 12/30/2024 7:20 AM EST [facility] Total Protein 7.2 6.0 - 8.0 g/dL LAB CHEMISTRY METHOD 12/30/2024 7:20 AM EST [facility] Albumin 4.0 3.2 - 5.0 g/dL LAB CHEMISTRY METHOD 12/30/2024 7:20 AM EST [facility] Total Bilirubin 0.4 0.0 - 1.4 mg/dL LAB CHEMISTRY METHOD 12/30/2024 7:20 AM EST [facility] Blood Venous blood specimen / Unknown Venipuncture / Unknown 12/30/2024 6:32 AM EST 12/30/2024 6:41 AM EST Santa Guillen MD LAB BLOOD ORDERA BLES [facility] [address] [place] [address], * ECG 12 lead (12/30/2024 6:30 AM EST) Ventricular Rate ECG 91 BPM GEMUSE Atrial Rate 91 BPM GEMUSE P-R Interval 130 ms GEMUSE QRS Duration 66 ms GEMUSE Q-T Interval 376 ms GEMUSE QTc 462 ms GEMUSE P Wave [place] 19 degrees GEMUSE R [place] 9 degrees GEMUSE T [place] 62 degrees GEMUSE ECG Interpretation Normal sinus [...] * ECG-Annotated (12/30/2024) Provider Onbase ECG ORDERABLES documented in this encounter Visit Diagnoses Not on filedocumented in this encounter Orders EKG Orders Without Results Count Last Ordered D ate First Ordered Date ECG 12-LEAD 1 12/30/2024 documented in this encounter Care Teams Nip Wrapper Relationship Specialty Start Date End Date Roselia Enrique MD [address] [place] [id number] PCP - General 05/27/22 documented as of this encounter
--- OUTSIDE RECORDS SUMMARY | 2025-01-04 11:24 | XMS_ITS | Clinical Summary ---
Author Organization [facility] Address [address] [place] [address] Care Team Providers Care Weekend Anchor Name Role Phone Unavailable Primary Care Provider [...]
--- OUTSIDE RECORDS SUMMARY | 2025-01-04 11:25 | XMS_ITS | Encounter Summary ---
Author Organization [employer] Address [address] [place] [address] Care Team Providers Care Stepdown Nurse Name Role Phone Roselia Enrique MD Primary Care Provider [phone] Reason for Visit * Reason Onset Date Comments Nurse Triage 12/27/2024 Encounter Details Date Type Department Care Team ([facility] st Contact Info) Description 12/27/2024 Telephone [facility] [address] [place], [place] [phone] Roselia Enrique MD [address] [place], [place] [phone] Nurse Triage Social History Tobacco Use Types [...] other associated symptoms. given appt today with [facility] at 2:40 for exam. advised [...] higher acuity questions Please contact pt/spouse at [phone]. documented in this encounter Plan of Treatment Upcoming Encounters Date Type Department Care Team (Late st Contact Info) Description 01/30/2025 9:30 AM EST Office Visit [facility] [address] [place] [address] Cole Shen MD [address] [place] [address] documented as of this encounter Visit Diagnoses Not on filedocumented in this encounter Additional Health Concerns Assessment Noted Time PHQ-9 Depression Total Score: 0 02/13/20 23 10:30 AM EDT documented as of this encounter Care Teams Stepdown Nurse Relationship Specialty Start Date End Date Roselia Enrique MD [address] [place] [phone] PCP - General Family Medicine 04/24/22 documented as of this encounter
--- OUTSIDE RECORDS SUMMARY | 2025-01-04 11:25 | XMS_ITS | Clinical Summary ---
Author Organization [employer] Address [address] [facility] 7[address] [place] [address] Care Team Providers Care Wireless Engineer Name Role Phone Roselia Enrique MD Primary Care Provider [phone] Allergies Active Allergy Reactions Criticality Noted Date [...] 25 025 Active neomycin-polym yxin-hydrocort isone (Cortisporin) 3.5-83272-0 otic suspensionIndi cations:Other infective acute otitis externa of both ears Administer 4 drops into affected ear(s) 4 times daily for 10 days. 7.5 mL 12/27/19 25 025 Active naproxen (Naprosyn) 500 MG tabletIndicati ons:Other infective acute otitis externa of both ears Take 1 tablet (500 mg) by mouth 2 times daily. 20 tablet 12/27/19 25 025 Active neomycin-polym yxin-hydrocort isone (Cortisporin) 3.5-61611-3 otic suspensionIndi cations:Other infective acute otitis externa [...] Encounters Date Type Department Care Team Description 01/01/2025 Orders Only [facility] [address] [place] [address] Provider, MD Romina 12/27/2024 2:40 PM EST Office Visit [facility] [address] [place] [address] Cole Shen MD Sensation of fullness in both ears (Primary Dx); Other infective acute otitis externa of both ears; Iron deficiency anemia secondary to inadequate dietary iron intake; Psoriasis 12/27/2024 Orders Only [facility] [address] [place] [address] Cole Shen MD Elevated alkaline phosphatase level (Primary Dx) 12/27/2024 Travel 12/27/2024 Telephone [facility] [address] [place], [place] [phone] Roselia Enrique MD Nurse Triage 12/25/2024 Telephone [facility] [address], [place] [phone] Roselia Enrique MD from Last 3 Months [...] your housing situation today? I have jacob roddy 09/30/[address] you li [...] Description 01/30/2025 9:30 AM EST Office Visit [facility] [address], [place] [phone] Cole Shen MD [address] [place] [address] Health Maintenance Due Date Last Done Comments [...] Tobacco Screening 02/13/2024 02/12/2023 COVID-19 Vaccine ( season) 2024 04/02/2021, 03/05/2021 Influenza Vaccine (#1) [...] Procedure Name Priority Date/Time Associated Diagnosis Comments ECG 12-LEAD Routine 12/30/2024 9:23 AM EST SARS COV2/INFLUENZA A/B AND RSV RNA QL NAAT Routine 12/27/2024 4:22 PM EST Sensation of fullness in both ears POCT RAPID STREP A Routine 12/27/2024 3: 34 PM EST Sensation of fullness in both ears POCT INFLUENZA B Routine 12/27/2024 3:33 PM EST Sensation of fullness in both ears POCT INFLUENZA A Routine 12/27/2024 3:33 PM EST Sensation of fullness in both ears TSH W/REFLEX TO FT4 Routine 12/27/2024 3 :33 PM EST Iron deficiency anemia secondary to inadequate dietary iron intake Psoriasis LIPID PANEL, STANDARD Routine 12/27/2024 3:33 PM EST Iron deficiency anemia secondary to inadequate dietary iron intake Psoriasis COMPREHENSIVE METABOLIC PANEL Routine 12/27/2024 3:33 PM EST Iron deficiency anemia secondary to inadequate dietary iron intake Psoriasis CBC WITH AUTO DIFFERENTIAL Routine 12/27/2024 3:33 PM EST Iron deficiency anemia secondary to inadequate dietary iron intake Psoriasis POCT RAPID COVID ANTIGEN Routine 12/27/2024 3:32 PM EST Sensation of fullness in both ears BI MAMMOGRAM SCREENING TOMOSYNTHESIS BILATERAL Routine 06/20/2024 9:25 AM EDT from Last 3 Months or Most Recently Relevant to Health Maintenance Results * ECG 12 lead (12/30/2024 9:23 AM EST) us Historical Provider ECG ORDERABLES Final Res ult * SARS-CoV-2 RNA, Influenza A/B, and RSV RNA, Ql NAAT (12/27/2024 4:22 PM EST) Influenza A PCR NEGATIVE Negative [facility] Influenza B PCR NEGATIVE Negative [facility] Resp Syncy Virus RNA Qual PCR NEGATIVE Negative [facility] SARS COV2 PCR NEGATIVE Negative [facility] Comment:All test results mus t be correlated with clinical findings.Negative results do not preclude SARS-CoV2, influenza Avirus, influenza B virus and/or RSV infectionand should not be used as the sole basis for treatment orother patient management decisions. Negative results must becombined with clinical observations, patient history, andepidemiological information.This test has not been evaluated for monitoring treatment ofinfection.This test has been authorized by the FDA under an EmergencyUse Authorization (EUA) for use by authorized laboratories.Testing performed on the [email or web address] GeneXpert utilizingreal-time RT-PCR.All SARS CoV2 and positive influenza A/B results arereported to [facility]OLV[facility] CONNELLY. Swab Nasopharyngeal structure / Unknown 12/27/2024 4:22 PM EST 12/27/2024 5:34 PM EST us Cole Shen MD LAB MICROBIOLOGY - GENERAL ORDERABLES Final Result [facility] [address] [place] [address] [phone] * POCT Rapid Strep A OSOM (12/27/2024 3:34 PM EST) [facility] Rapid Strep A Screen Negative Negative, None Detected QC Media Lot # [id number] Lot# Expiration Date [id number] Swab 12/27/2024 3:34 PM EST Cole Shen MD POINT OF CARE TEST ENTER/ED IT ORDERABLES Final Result * TSH W/Reflex to FT4 (12/27/2024 3:33 PM EST) [facility] TSH reflex Free T4 1.54 0.32 - 4.0 uIU/mL [facility] Blood Venous blood specimen / Unknown 12/27/2024 3:33 PM EST 12/27/2024 5:46 PM EST Cole Shen MD LAB BLOOD ORDERABLES Final Result [facility] [address] [place] [phone] * (ABNORMAL) CBC auto differential (12/27/2024 3:33 PM EST) [facility] White Blood Count 9.5 4.8 - 10.8 X10*3/uL [facility] Red Blood Count 4.90 4.20 - 5.50 X10*6/uL [facility] Hemoglobin 15.5 12.0 - 16.0 g/dl [facility] Hematocrit 46.3 37.0 - 47.0 % [facility] Mean Corpuscular Volume 94.5 80.0 - 98.0 fL [facility] Mean Corpuscular Hemoglobin 31.6 27.0 - 33.0 pg [facility] Mean Corpuscular HGB Conc 33.5 31.0 - 35.0 g/dl [facility] Red Cell Distribution Width 13.2 11.0 - 16.0 % [facility] Platelet Count 422(H) 160 - 400 X10*3/uL [facility] Mean Platelet Volume 10.6 9.4 - 12.3 fL [facility] Neutrophils Percent Auto 61.5 45 - 73 % [facility] Imm Gran Pct Auto 0.3 0.0 - 0.4 % [facility] Lymphocytes Percent Auto 28.4 20 - 40 % [facility] Monocytes Percent Auto 7.3 2 - 11 % [facility] Eosinophils Percent Auto 1.9 0 - 4 % [facility] Basophils Percent Auto 0.6 0 - 2 % [facility] NRBC Pct Auto 0.0 0.0 - 0.2 /100WBC [facility] Neutrophils Absolute Auto 5.8 2.0 - 8.3 x10*3/uL [facility] Imm Gran Abs Auto 0.03 0.00 - 0.03 X10*3/uL [facility] Lymphocytes Absolute Auto 2.7 1.2 - 4.9 X10*3/uL [facility] Monocytes Absolute Auto 0.7 0.1 - 1.2 X10*3/uL [facility] Eosinophils Absolute Auto 0.2 0.0 - 0.4 X10*3/uL [facility] Basophils Absolute Auto 0.1 0.0 - 0.2 X10*3/uL [facility] NRBC Abs Auto 0.000 0.0 - 0.012 X10*3/uL [facility] Blood Venous blood specimen / Unknown 12/27/2024 3:33 PM EST 12/27/2024 5:46 PM EST us Cole Shen MD LAB BLOOD ORDERABLES Final Result [facility] [address] [place] [address] [phone] * POCT Rapid Influenza B OSOM (12/27/2024 3:33 PM EST) [facility] Rapid Influenza B Ag Negative Negative, Indeterminate QC Media Lot # [id number] Swab 12/27/2024 3:33 PM EST Cole Shen MD POINT OF CARE TEST ENTER/ED IT ORDERABLES Final Result * POCT Rapid Influenza A OSOM (12/27/2024 3:33 PM EST) [facility] Rapid Influenza A Ag Negative Negative, Indeterminate QC Media Lot # [id number] Lot# Expiration Date Swab Nasopharyngeal structure / Unknown 12/27/2024 3:33 PM EST Cole Shen MD POINT OF CARE TEST ENTER/ED IT ORDERABLES Final Result * (ABNORMAL) Lipid Panel, Standard (12/27/2024 3:33 PM EST) Pathologist [facility] Triglycerides 185(H) <150 mg/dL [facility] Comment:Desirable Triglyceri de: less than 150 mg/dLBorderline High Triglyceride 150-199 mg/dLHigh Triglyceride: 200-499 mg/dLVery High Triglyceride: greater than or equal to 5OO mg/dL Cholesterol 174 <200 mg/dL [facility] Comment:Desirable Cholestero l: less than 200 mg/dLBorderline High Cholesterol: 200-239 mg/dLHigh Cholesterol: greater than 239 mg/dL LDL Cholesterol Calculated 91 <100 mg/dL [facility] Comment:Desirable LDL: less than 100 mg/dLNear Optimal/Above Optimal LDL: 110- 129 mg/dLBorderline High LDL: 130-159 mg/dLHigh LDL: 160-189 mg/dLVery High LDL: greater than or equal to 190 mg/dL HDL Cholesterol 46 >40 mg/dL [facility] Comment:Desirable HDL: great er than 40 mg/dL Note: This HDL assay may give artificially low results in patients with liver disease. Blood Venous blood specimen / Unknown 12/27/2024 3:33 PM EST 12/27/2024 5:46 PM EST us Cole Shen MD LAB BLOOD ORDERABLES Final Result Performing Organization Address City/[facility]/ZIP Co de Phone Number [facility] [address] [place] [address] [phone] * (ABNORMAL) Comprehensive Metabolic Panel (12/27/2024 3:33 PM EST) Sodium 140 135 - 145 mmol/L [facility] Potassium 4.0 3.3 - 5.1 mmol/L [facility] Chloride 106 96 - 108 mmol/L [facility] Carbon Dioxide 26 22 - 29 mmol/L [facility] Anion Gap 12 12 - 20 [facility] Urea Nitrogen (BUN) 12 9 - 16 mg/dL [facility] Creatinine, Serum 0.79 0.5 - 1.4 mg/dL [facility] Estimated Glomerular Filt Rate >60 [facility] Comment:Chronic Kidney Disea se: Estimated GFR < 60 mL/min/1.99o4Zimrgk Kidney Disease: Estimated GFR < 15 mL/min/1.73m2 Glucose 101 60 - 115 mg/dL [facility] Calcium 9.9 8.4 - 10.2 mg/dL [facility] Bilirubin, Total 0.3 0.0 - 1.0 mg/dL [facility] Aspartate Amino Transferase 26 5 - 31 U/L [facility] Alanine Aminotransferase 33(H) 0 - 31 U/L [facility] Total Protein 7.7 6.5 - 8.0 g/dL [facility] Albumin Level 4.4 3.5 - 5.0 g/dL [facility] Alkaline Phosphatase 138(H) 39 - 117 U/L [facility] Blood Venous blood specimen / Unknown 12/27/2024 3:33 PM EST 12/27/2024 5:46 PM EST us Cole Shen MD LAB BLOOD ORDERABLES Final Result [facility] [address] [place] [address] [phone] * POCT Rapid Covid-19 [employer] (12/27/2024 3:32 PM EST) Rapid COVID Ag Negative QC Media Lot # [id number] Lot# Expiration Date [id number] Swab 12/27/2024 3:32 PM EST us Cole Shen MD POINT OF CARE TEST ENTER/ED IT ORDERABLES Final Result * BI Mammogram Screening Tomosynthesis Bilateral (06/20/2024 9:25 AM EDT) Anatomical Region Laterality Modality Breast Bilateral Mammography 06/20/2024 9:25 AM EDT Narrative 07/11/2024 9:41 PM EDT ? [facility] ? [address] ?[place] [address] ? Mammography Report ? Signed ? Patient: Sirard,Miranda ?MR#: [id number] ?? 47 ? : 1955 ?Acct:[id number] ? Age/Sex: 68 / F ?ADM Date: 07/23/24 ? Loc: HO.MAMMO ? Attending Dr: Roselia S Iva MD ? Ordering Physician: Iva,Roselia S MD ?Results: 2Benign ?? Findings ? Date of Service: //24 ?Follow Up: 1 Year From Orig ?? inal Mammogram ? Procedure(s): MM tomosynthesis screening BI ?? Accession Number(s): [id number] ? cc: Roselia Enrique MD ? EXAMINATION: [...] 07/11/242136 ? DD/ 4 ? TD/TT: ? Box Person: ? Procedure Note Teri Neff - 07/11/2024 [facility] [address] [place] [address] [place] [address] Mammography Report Signed Patient: Miranda WrightMR#: [id number] 47 : 6Acct:[id number] Age/Sex: 68 / FADM Date: 06/20/24 Loc: HO.MAMMO Attending Dr: Roselia Enrique MD Ordering Physician: Roselia Enrique MDResults: 2Benign Findings Date of Service: 06/20/24Follow Up: 1 Year From Orig ina Mammogram Procedure(s): MM tomosynthesis screening BI Accession Number(s): [id number] cc: Roselia Enrique MD EXAMINATION: MM SCREENING [...] MD Signed By: <Electronically signed by Viv Ferrrea MD in OV> 07/11/242136 DD/ 4 TD/TT: Box Person: Roselia Enrique MD IMG BI PROCEDURES Edited Result - Final from Last 3 Months or Most Recently Relevant to Health Maintenance Insurance [facility] [employer] [facility] [employer] FAM[employer]AN [facility] Address: [address] [place] [address] Care Teams Wireless Engineer Relationship Specialty Start Date End Date Roselia Enrique MD [address] [place] [phone] PCP - General Family Medicine 04/24/22
--- OUTSIDE RECORDS SUMMARY | 2025-01-04 11:25 | XMS_ITS | Encounter Summary ---
Author Organization [employer] Address [address] [facility] [address] [place] [address] Care Team Providers Care Stain Dipper Name Role Phone Roselia Enrique MD Primary Care Provider [phone] Reason for Referral * Imaging (Routine) - Authorized Specialty Diagnoses / Procedures Referred By Contac t Referred To Contact Radiology Diagnoses Elevated alkaline phosphatase level Procedures US Abdomen Complete Cole Shen MD [address] [place] [address] Phone: tel: fax: [address] Phone: tel: fax: Referral ID Status Reason Start Date Expiration Date V isits Requested Visits Authorized [id number] Authorized 12/27/2024 12/27/2025 1 1 Encounter Details Date Type Department Care Team (Late st Contact Info) Description 12/27/2024 Orders Only [facility] [address] [place], [place] [phone] Cole Shen MD [address] [place], [place] [phone] Elevated alkaline phosphatase level (Primary Dx) Social History Tobacco Use Types Packs/Day Years [...] Description 01/30/2025 9:30 AM EST Office Visit [facility] [address] [place], [place] [phone] Cole Shen MD [address] [place] [address] Scheduled Orders Name Type Priority Associated Diagnoses Orde r Schedule US Abdomen Complete Imaging Routine Elevated alkaline phosphatase level Expected: 12/27/2024, Expires: 12/27/2025 Hepatitis A,B,C Profile Lab Routine Elevated alkaline phosphatase level Expected: 12/27/2024, Expires: 12/27/2025 documented as of this encounter Visit Diagnoses Diagnosis Elevated alkaline phosphatase level- Primary documented in this encounter Additional Health Concerns Assessment Noted Time PHQ-9 Depression Total Score: 0 02/13/20 23 10:30 AM EDT documented as of this encounter Care Teams Stain Dipper Relationship Specialty Start Date End Date Roselia Enrique MD [address] [place] [phone] PCP - General Family Medicine 04/24/22 documented as of this encounter
--- OUTSIDE RECORDS SUMMARY | 2025-01-04 11:25 | XMS_ITS | Encounter Summary ---
Author Organization [facility] Address [address] [place] [address] Care Team Providers Care Italian Teacher Name Role Phone Roselia Enrique MD Primary Care Provider [phone] Reason for Visit * Imaging (Routine) - Closed Specialty Diagnoses / Procedures Referred By Contac t Referred To Contact Diagnoses Aortic occlusion (CMS/HCC) Procedures Vascular US duplex aorta/IVC/iliac/grafts complete Stevan Steel MD [address] [place] [address] [facility] Referral ID Status Reason Start Date Expiration Date Visits Re quested Visits Authorized [id number] Closed 12/04/2024 12/04/2025 1 1 Encounter Details Date Type Department Care Team (Latest Contact Info) Description 12/22/2024 7:30 AM EST Ancillary Procedure [facility] [address] [place] [phone] Aortic occlusion (CMS/HCC) Social History Tobacco Use [...] AM EST Office Visit [facility] [place] [address] [place] [phone] Stevan Steel MD [address] [place] [address] documented as of this encounter Procedures Procedure [...] are normal in size and flow velocity. Middle School Counselor Details A daniels scale, color and doppler analysis ultrasound was performed. During the study longitudinal and transverse views were obtained. Pulsed wave doppler was performed. Stevan Steel MD CV VASCULAR PROCEDUR ES documented in this encounter Visit Diagnoses Diagnosis Aortic occlusion (CMS/HCC) documented in this encounter Care Teams Italian Teacher Relationship Specialty Start Date End Date Roselia Enrique MD [address] [place] [address] PCP - General 05/27/22 documented as of this encounter
--- OUTSIDE RECORDS SUMMARY | 2025-01-04 11:25 | XMS_ITS | Encounter Summary ---
Author Organization [employer] Address [address] [facility] [address] [place] [address] Care Team Providers Care Hitch Technician Name Role Phone Roselia Enrique MD Primary Care Provider [phone] Encounter Details Date Type Department Care Team ([facility] st Contact Info) Description 12/25/2024 Telephone [facility] [address] [place] [address] Roselia Enrique MD [address] [place], [place] [phone] Social History Tobacco Use Types Packs/Day Years [...] Description 01/30/2025 9:30 AM EST Office Visit [facility] [address] [place] [address] Cole Shen MD [address] [place] [address] documented as of this encounter Visit Diagnoses Not on filedocumented in this encounter Additional Health Concerns Assessment Noted Time PHQ-9 Depression Total Score: 0 02/13/20 23 10:30 AM EDT documented as of this encounter Care Teams Hitch Technician Relationship Specialty Start Date End Date Roselia Enrique MD [address] [place] [phone] PCP - General Family Medicine 04/24/22 documented as of this encounter
--- OUTSIDE RECORDS SUMMARY | 2025-01-04 11:25 | XMS_ITS | Encounter Summary ---
Author Organization [employer] Address [address] [facility] 7[address] [place] [address] Care Team Providers Care Scrummaster Name Role Phone Roselia Enrique MD Primary Care Provider [phone] Reason for Visit * Reason Comments Shortness of Breath Encounter Details Date Type Department Care Team ([facility] st Contact Info) Description 12/27/2024 2:40 PM EST Office Visit [facility] PEDS [address] [place], [place] [phone] Cole Shen MD [address] [place] [address] Sensation of fullness in both ears (Primary [...] the past 12 months, has t he [employer], gas, oil or water [employer] threatened to shut off services in your [...] other associated symptoms. given appt today with [facility] at 2:40 for exam. advised [...] acute otitis externa of both ears - [id number]-wuvecwmvo-ynuztmtsxaqawx (Cortisporin) 3.5-62115-5 otic suspension; Administer 4 drops into affected [...] Future - TSH W/Reflex to FT4; Future * Jody Moon RN - 12/27/2024 2:40 PM EST TC with patient. Reviewed lab results and recommendations. All questions and concerns addressed. Patient agrees with plan. documented in this encounter Miscellaneous Notes * Result Encounter Note - Cole Shen MD - 12/27/2024 2:40 PM EST Please call. Labs reviewed. Elevation of liver test. I will order an ultrasound of the abdomen withhepatitis panel. Elevated triglyceride level. Patient is to avoid refined sugar. To keep as a as tolerated. documented in this encounter Plan of Treatment Upcoming Encounters Date Type Department Care Team (Late st Contact Info) Description 01/30/2025 9:30 AM EST Office Visit [facility] [address] [place] [address] Cole Shen MD [address] [place] [address] documented as of this encounter Procedures Procedure Name Priority Date/Time Associated Diagnosis Comments SARS COV2/INFLUENZA A/B AND RSV RNA QL [...] to inadequate dietary iron intake Psoriasis POCT INFLUENZA B Routine 12/27/2024 3:33 PM EST Sensation of fullness in both ears POCT INFLUENZA A Routine 12/27/2024 3:33 PM EST Sensation of fullness in both ears LIPID PANEL, STANDARD Routine 12/27/2024 3:33 PM EST Iron deficiency anemia secondary to inadequate dietary iron intake Psoriasis COMPREHENSIVE METABOLIC PANEL Routine 12/27/2024 3:33 PM EST Iron deficiency anemia secondary to inadequate dietary iron intake Psoriasis POCT RAPID COVID ANTIGEN Routine 12/27/2024 3:32 PM EST Sensation of fullness in both ears documented in this encounter Results * SARS-CoV-2 RNA, Influenza A/B, and RSV RNA, Ql NAAT (12/27/2024 4:22 PM EST) [facility] Influenza A PCR NEGATIVE Negative [facility] Influenza B PCR NEGATIVE Negative [facility] Resp Syncy Virus RNA Qual PCR NEGATIVE Negative [facility] SARS COV2 PCR NEGATIVE Negative [facility] Comment:All test results mus t be [...] use by authorized laboratories.Testing performed on the [employer] GeneXpert utilizingreal-time RT-PCR.All SARS CoV2 and positive influenza A/B results arereported to [facility]. Swab Nasopharyngeal structure / Unknown 12/27/2024 4:22 PM EST 12/27/2024 5:34 PM EST Cole Shen MD LAB MICROBIOLOGY - GENERAL ORDERABLES Final Result [facility] [address] [place] [phone] * POCT Rapid Strep A OSOM (12/27/2024 3:34 PM EST) [facility] Rapid Strep A Screen Negative Negative, None Detected QC Media Lot # [id number] Lot# Expiration Date [id number] Swab 12/27/2024 3:34 PM EST Cole Shen MD POINT OF CARE TEST ENTER/ED IT ORDERABLES Final Result * TSH W/Reflex to FT4 (12/27/2024 3:33 PM EST) [facility] TSH reflex Free T4 1.54 0.32 - 4.0 uIU/mL [facility] Blood Venous blood specimen / Unknown 12/27/2024 3:33 PM EST 12/27/2024 5:46 PM EST us Cole Shen MD LAB BLOOD ORDERABLES Final Result Performing Organization Address [facility] Co de Phone Number [facility] [address] [place] [address] [phone] * (ABNORMAL) Lipid Panel, Standard (12/27/2024 3:33 PM EST) Triglycerides 185(H) <150 mg/dL [facility] Comment:Desirable Triglyceri de: less than 150 mg/dLBorderline High Triglyceride 150-199 mg/dLHigh Triglyceride: 200-499 mg/dLVery High Triglyceride: greater than or equal to 5OO mg/dL Cholesterol 174 <200 mg/dL [facility] Comment:Desirable Cholestero l: less than 200 mg/dLBorderline High Cholesterol: 200-239 mg/dLHigh Cholesterol: greater than 239 mg/dL LDL Cholesterol Calculated 91 <100 mg/dL [facility] Comment:Desirable LDL: less than 100 mg/dLNear Optimal/Above Optimal LDL: 110- 129 mg/dLBorderline High LDL: 130-159 mg/dLHigh LDL: 160-189 mg/dLVery High LDL: greater than or equal to 190 mg/dL HDL Cholesterol 46 >40 mg/dL [facility] Comment:Desirable HDL: great er than 40 mg/dL Note: This HDL assay may give artificially low results in patients with liver disease. Blood Venous blood specimen / Unknown 12/27/2024 3:33 PM EST 12/27/2024 5:46 PM EST us Cole Shen MD LAB BLOOD ORDERABLES Final Result Performing Organization Address [facility]/ZIP Co de Phone Number [facility] [address] [place] [address] [phone] * (ABNORMAL) Comprehensive Metabolic Panel (12/27/2024 3:33 PM EST) Sodium 140 135 - 145 mmol/L [facility] Potassium 4.0 3.3 - 5.1 mmol/L [facility] Chloride 106 96 - 108 mmol/L [facility] Carbon Dioxide 26 22 - 29 mmol/L [facility] Anion Gap 12 12 - 20 [facility] Urea Nitrogen (BUN) 12 9 - 16 mg/dL [facility] Creatinine, Serum 0.79 0.5 - 1.4 mg/dL [facility] Estimated Glomerular Filt Rate >60 [facility] Comment:Chronic Kidney Disea se: Estimated GFR < 60 mL/min/1.85g5Lwelbr Kidney Disease: Estimated GFR < 15 mL/min/1.73m2 Glucose 101 60 - 115 mg/dL [facility] Calcium 9.9 8.4 - 10.2 mg/dL [facility] Bilirubin, Total 0.3 0.0 - 1.0 mg/dL [facility] Aspartate Amino Transferase 26 5 - 31 U/L [facility] Alanine Aminotransferase 33(H) 0 - 31 U/L [facility] Total Protein 7.7 6.5 - 8.0 g/dL [facility] Albumin Level 4.4 3.5 - 5.0 g/dL [facility] Alkaline Phosphatase 138(H) 39 - 117 U/L [facility] Blood Venous blood specimen / Unknown 12/27/2024 3:33 PM EST 12/27/2024 5:46 PM EST us Cole Shen MD LAB BLOOD ORDERABLES Final Result [facility] [address] [place] [address] [phone] * (ABNORMAL) CBC auto differential (12/27/2024 3:33 PM EST) Pathologist [facility] White Blood Count 9.5 4.8 - 10.8 X10*3/uL [facility] Red Blood Count 4.90 4.20 - 5.50 X10*6/uL [facility] Hemoglobin 15.5 12.0 - 16.0 g/dl [facility] Hematocrit 46.3 37.0 - 47.0 % [facility] Mean Corpuscular Volume 94.5 80.0 - 98.0 fL [facility] Mean Corpuscular Hemoglobin 31.6 27.0 - 33.0 pg [facility] Mean Corpuscular HGB Conc 33.5 31.0 - 35.0 g/dl [facility] Red Cell Distribution Width 13.2 11.0 - 16.0 % [facility] Platelet Count 422(H) 160 - 400 X10*3/uL [facility] Mean Platelet Volume 10.6 9.4 - 12.3 fL [facility] Neutrophils Percent Auto 61.5 45 - 73 % [facility] Imm Gran Pct Auto 0.3 0.0 - 0.4 % [facility] Lymphocytes Percent Auto 28.4 20 - 40 % [facility] Monocytes Percent Auto 7.3 2 - 11 % [facility] Eosinophils Percent Auto 1.9 0 - 4 % [facility] Basophils Percent Auto 0.6 0 - 2 % [facility] NRBC Pct Auto 0.0 0.0 - 0.2 /100WBC [facility] Neutrophils Absolute Auto 5.8 2.0 - 8.3 x10*3/uL [facility] Imm Gran Abs Auto 0.03 0.00 - 0.03 X10*3/uL [facility] Lymphocytes Absolute Auto 2.7 1.2 - 4.9 X10*3/uL [facility] Monocytes Absolute Auto 0.7 0.1 - 1.2 X10*3/uL [facility] Eosinophils Absolute Auto 0.2 0.0 - 0.4 X10*3/uL [facility] Basophils Absolute Auto 0.1 0.0 - 0.2 X10*3/uL [facility] NRBC Abs Auto 0.000 0.0 - 0.012 X10*3/uL [facility] Blood Venous blood specimen / Unknown 12/27/2024 3:33 PM EST 12/27/2024 5:46 PM EST Cole Shen MD LAB BLOOD ORDERABLES Final Result [facility] [address] [place] [address] [phone] * POCT Rapid Influenza B OSOM (12/27/2024 3:33 PM EST) [facility] Rapid Influenza B Ag Negative Negative, Indeterminate QC Media Lot # [id number] Swab 12/27/2024 3:33 PM EST Result [facility] Cole Shen MD POINT OF CARE TEST ENTER/ED IT ORDERABLES Final Result * POCT Rapid Influenza A OSOM (12/27/2024 3:33 PM EST) [facility] Rapid Influenza A Ag Negative Negative, Indeterminate QC Media Lot # [id number] Lot# Expiration Date [id number] Swab Nasopharyngeal structure / Unknown 12/27/2024 3:33 PM EST Result [facility] Cole Shen MD POINT OF CARE TEST ENTER/ED IT ORDERABLES Final Result * POCT Rapid Covid-19 [employer] (12/27/2024 3:32 PM EST) [facility] Rapid COVID Ag Negative QC Media Lot # [id number] Lot# Expiration Date [id number] Swab 12/27/2024 3:32 [...] documented as of this encounter Care Teams Scrummaster Relationship Specialty Start Date End Date Roselia Enrique MD [address] [place] [address] PCP - General Family Medicine 04/24/22 documented as of this encounter
--- OUTSIDE RECORDS SUMMARY | 2025-01-04 11:25 | XMS_ITS | Encounter Summary ---
Author Organization [employer] Address [address] [facility] [address] [place] [address] Care Team Providers Care Die Cutter Apprentice Name Role Phone Roselia Enrique MD Primary Care Provider [phone] Encounter Details Date Type Department Care Team (Late st Contact Info) Description 01/01/[address] [facility]S [address] [place], [place] [phone] ProviderRomina MD Social History Tobacco Use Types Packs/Day Years [...] is your housing situation today? I have jacobmicheline pereyra 09/30/[address] you [...] 9:30 AM EST Office Visit [facility] [address] [place] [address] Cole Shen MD [address] [place] [address] documented as of this encounter Procedures Procedure Name Priority Date/Time Associated Diagnosis Comments ECG 12-LEAD Routine 12/30/2024 9:23 AM EST documented in this encounter Results * ECG 12 lead (12/30/2024 9:23 AM EST) us Historical Provider ECG ORDERABLES Final Res ult documented in this encounter Visit Diagnoses Not on filedocumented in this encounter Additional Health Concerns Assessment Noted Time PHQ-9 Depression Total Score: 0 02/13/20 23 10:30 AM EDT documented as of this encounter Care Teams Die Cutter Apprentice Relationship Specialty Start Date End Date Roselia Enrique MD [address] [place] [address] PCP - General Family Medicine 04/24/22 documented as of this encounter
--- OUTSIDE RECORDS SUMMARY | 2025-01-04 11:25 | XMS_ITS | Encounter Summary ---
Author Organization [employer] Address [address] [facility] [address] [place] [address] Care Team Providers Care Haulpak Driver Name Role Phone Roselia Enrique MD Primary Care Provider [phone] Encounter Details Date Type Department Care Team [...] Description 01/30/2025 9:30 AM EST Office Visit [facility] [address] [place] [address] Cole Shen MD [address] [place] [address] documented as of this encounter Visit Diagnoses Not on filedocumented in this encounter Additional Health Concerns Assessment Noted Time PHQ-9 Depression Total Score: 0 02/13/20 23 10:30 AM EDT documented as of this encounter Care Teams Haulpak Driver Relationship Specialty Start Date End Date Roselia Enrique MD [address] [place] [phone] PCP - General Family Medicine 04/24/22 documented as of this encounter
== END 2025-01-04 11:22 | disposition home or self-care (01) ==
LOC: HO.HMGCX 11:21
PROVIDERS: PCP Student in an Organized Health Care Education/Training Program; Visit Provider Internal Medicine
DX: R74.8 Abnormal levels of other serum enzymes (principal)
CPT/HCPCS: 76700

== ENCOUNTER → 2025-01-04 11:23 | Outpatient (BNV) | payer OTHER, SELFPAY | PROVIDERS: PCP Student in an Organized Health Care Education/Training Program; Visit Provider Radiology Diagnostic Radiology | DX: R74.8 Abnormal levels of other serum enzymes (principal) | CPT/HCPCS: 76700 ==

== ENCOUNTER 2025-06-26 09:24 | Outpatient (REF) | payer OTHER, SELFPAY ==
--- OUTSIDE RECORDS SUMMARY | 2025-06-26 09:51 | XMS_ITS | Clinical Summary ---
Author Organization [address] [place] [address] [place] [phone] Phone Care Team Providers Care Roller Stitcher Name Role Phone Roselia Enrique MD Primary Care Provider [phone] Allergies Active Allergy Reactions Criticality Noted Date Comments Iodinated Contrast Media Hives 12/08/2011 Medications cholecalciferol, vitamin D3, (VITAMIN D3 ORAL) Take 1,000 mg by mouth 1 (one) time each day. Active IRON-FOLIC ACID ORAL Take by mouth daily. Active Active Problems Problem Noted Date Diagnosed Date Tachycardia 11/02/2024 PAD (peripheral artery disease) ([facility] V24) Overview (11/02/2024): Last Assessment & Plan: Patient [...] with us only as needed. Aortic occlusion ([facility]/HCC V24) 07/24/2022 Diverticulitis large intesti ne w/o perforation [...] atorvastatin as prescribed. Lumbar disc herniation 12/08/2011 Immunizations Name Administration Dates Next Due Influenza [...] Site/Laterality Comments OTHER SURGICAL HISTORY 1994 PROCEDURE: ND TOTAL ABDOMINAL HYSTERECT W/WO RMVL TUBE OVARY OTHER SURGICAL HISTORY 2009 PROCEDURE: PARTIAL REMOVAL OF THYROI KIDNEY STONE SURGERY 1979 PROCEDURE: ND NEPHROLITHOTOMY REMOVAL CALCULUS APPENDECTOMY 1994 PROCEDURE: HISTORICAL APPENDECTOMY OTHER SURGICAL HISTORY PROCEDURE: ND COLECTOMY PARTIAL W/ANASTOMOSIS OTHER SURGICAL HISTORY 05/11/2022 PROCEDURE: ND TEAEC W/WO PATCH GRAFT ABDOMINAL AORTA; COMMENT: Infrarenal aortic edarterectomy with bovine pericardial patch angioplasty OTHER SURGICAL HISTORY 05/11/2022 PROCEDURE: ND ENTEROLSS FRING INTSTINAL ADHESION SPX; COMMENT: Extensive [...] First attack 06/2017. Critical lower limb ischemia (CMS/HCC V24, CMS/HCC V28) DX:Critical lower limb ische sofia (HCC) Intermittent claudication du e to atherosclerosis of artery of extremity (CMS/HCC V24) DX:Intermittent claudication due to atherosclerosis of artery of extremity (HCC) Rest pain of both lower extr emities due to atherosclerosis (CMS/HCC V24, CMS/HCC V28) DX:Rest pain of both lower extremities due to atherosclerosis (HCC) Acute respiratory failure wi th hypoxia (CMS/HCC V24, CMS/HCC V28) DX:Acute respirator y failure with hypoxia (HCC) Postoperative ileus (CMS/HCC V24, CMS/HCC V28) DX:Postoperative ileus (HCC) Acute postoperative pain DX:Acut e [...] drink = 0.6 oz pur e alcohol) Comments Unknown Sex and Gender Information Value Date Recorded Sex Assigned at Female 12/02/2022 2:53 PM EST Legal Sex Female 6:41 AM EST Gender Identity Female 12/02/2022 2:53 PM EST Sexual Orientation Not on file Obstetrics History Last Filed Vital Signs Vital Sign Reading Time Taken Comments Blood Pressure 127/76 12/30/2024 6:36 AM EST Pulse 73 12/30/2024 6:36 AM EST Temperature 36.5 C (97.7 F) 12/30/2024 6:36 AM EST Respiratory Rate 17 12/30/2024 6:36 AM EST Oxygen Saturation 98% 12/30/2024 6:36 AM EST Inhaled Oxygen Concentration - - Weight 77.1 kg (170 lb) 12/30/2024 6:36 AM EST Height 160 cm (5' 3 ) 12/30/2024 6:36 AM EST Body Mass Index 30.11 12/30/2024 6:36 AM EST Plan of Treatment Health Maintenance Due Date Last Done Comments Zoster Vaccines (1 of 2) 2006 RSV Immunization Adult Patients (1 - Risk 60-74 years 1-dose series) 2016 Breast Cancer Screening 08/23/2021 08/23/2019 Falls Risk Assessment 11/07/2022 Lung Cancer Screening (Low Dose CT) 11/07/2022 Medicare Annual Wellness Visit 11/07/2022 Social Influencers of Health Screening 11/07/2022 Pneumococcal Vaccine: 50+ Years (2 of 2 - PPSV23) 06/25/2023 06/25/2022 COVID-19 Vaccine ( - season) 2024 04/02/2021, 03/05/2021 Depression Screening 11/29/2024 Influenza Vaccine (#1) 2025 , 09/21/2020, 09/26/2019, Additional history exists Colorectal Cancer Screening: Colonoscopy 01/30/2026 01/30/2021 Osteoporosis Screening (Bone Density Screening) 08/24/2029 08/24/2019 Cholesterol Screening (Lipid Panel) 12/27/2029 12/27/2024, 01/06/2017 DTaP,Tdap,and Td Vaccines (3 - Td or [...] patient's age to complete this topic Meningococcal B Vaccine Aged Out No l onger eligible based on patient's age to complete this topic RSV Immunization Patients Under 20 months Aged Out No longer eligible based on patient's age to complete this topic Varicella Vaccines Aged Out No longer eligible based on patient's age to complete this topic Procedures Procedure Name Priority Date/Time Associated Diagnosis Comments COLONOSCOPY Routine 01/30/2021 [facility] DEXA AXIAL SKELETON Routine 08/24/2019 5:09 PM EDT Asymptomatic menopausal state [facility] SCREENING DIGITAL Routine 08/23/2019 9:36 AM EDT Encounter for screening mammogram for malignant neoplasm of breast LIPID PANEL Routine 01/06/2017 HEPATITIS C SCREENING Routine 06/29/2015 from Last 3 Months or Most Recently Relevant to Health Maintenance Results * Colonoscopy (01/30/2021) Colonoscopy Abstracted. No Interpretation Anatomical Region Laterality Modality Other us Historical Provider HEALTH MAINTENANCE Final Result * [facility] DEXA AXIAL SKELETON (08/24/2019 5:09 PM EDT) Anatomical Region Laterality Modality Mammography 08/23/2019 7:47 AM EDT Narrative 08/24/2019 5:09 PM EDT [facility] Diagnostic Imaging Department [address] [place] [address] Patient: OMAYRA WRIGHT /Age/Sex: 1955 - 63 - F Unit#: [id number] Location/Status: SPDIMAM/REG CLI Mnemonic/Ordering Site: MAMDEXAAX/SPMAM Ordering Physician: ESTHER CROOKS MD [facility] Dexa Axial Skeleton - 08/23/19 - 855 [facility] Dexa Axial Skeleton INDICATION: POSTMENOPAUSAL Technique: Bone [...] FRAX estimate if patient has received treatment. [address] A report detailing these results has been enclosed. Dictating Physician: KIZZY HERRERA MD Electronically Signed by: KIZZY HERRERA MD Dic Date/Time: 08/24/191707 Sign date/Time: 08/24/191708 Procedure Note Kizzy Herrera - 11/18/2022 [facility] Diagnostic Imaging Department [address] [place] [address] Patient: OMAYRA WRIGHT Lisa Yanes./Age/Sex: 1955 - 63 - F Unit#: [id number] Location/Status: SPDIMAM/REG CLI Mnemonic/Ordering Site: MAMDEXAAX/SPMAM Ordering Physician: ESTHER CROOKS MD [facility] Dexa Axial Skeleton - 08/23/19 - 56 [facility] Dexa Axial Skeleton INDICATION: POSTMENOPAUSAL Technique: Bone [...] than FRAXestimate if patient has received treatment. 91528 A report detailing these results has been enclosed. Dictating Physician: KIZZY HERRERA MD Electronically Signed by: KIZZY HERRERA MD Dic Date/Time: 08/24/191707 Sign date/Time: 08/24/191708 us Esther Crooks MD IMG BI PROCEDURES Final Re sult * ROGELIO SCREENING DIGITAL (08/23/2019 9:36 AM EDT) Anatomical Region Laterality Modality Mammography 08/23/2019 7:49 AM EDT Narrative 08/23/2019 9:36 AM EDT [facility] Diagnostic Imaging Department [address] [place] [id number] Patient: OMAYRA WRIGHT Lisa Yanes./Age/Sex: 1955 - 63 - F Unit#: [id number] Location/Status: [facility] CLI Mnemonic/Ordering Site: [facility] Ordering Physician: ESTHER CROOKS MD [facility] Screening Digital - 08/23/19 - 0807 History: Bilateral breast cancer screening. Technique: Digital mammography. Conventional CC and MLO projections with tomosynthesis MLO views and computer aided detection. Comparison made with previous mammograms from [facility] 01/13/2017 through 01/16/2005. Findings: Breast tissue consists of a heterogenous combination of fatty and fibroglandular tissue, potentially obscuring small lesions, category c density. There are benign calcifications bilaterally. No suspicious group of microcalcification, suspicious mass, concerning focal asymmetry, architectural distortion or concerning change in breast density affecting either breast. Impression: No evidence of malignancy. BIRADS category 2; benign findings, 3342F 38635, [address]93 A negative mammogram in the face of a clinically suspicious abnormality does not exclude the possibility of malignancy nor alter the indications for biopsy. Note: Patient information entered into a reminder system with a target due date for the next mammogram; PQRI II [id number] Dictating Physician: ALEXSANDER MATHIS MD Electronically Signed by: ALEXSANDER MATHIS MD Dic Date/Time: 08/23/19934 Sign date/Time: 08/23/19935 Procedure Note Alexsander Mathis - 11/18/2022 [facility] Diagnostic Imaging Department [address] [place] [id number] Patient: OMAYRA WRIGHT Lisa Yanes./Age/Sex: 1955 - 63 - F Unit#: [id number] [facility]ing Site[facility] Ordering Physician: ESTHER CROOKS MD Rogelio Screening Digital - 08/23/19 - 806 History: Bilateral breast cancer screening. Technique: Digital mammography. Conventional CC and MLO projections with tomosynthesis MLO views and computer aided detection. Comparison made with previous mammograms from [facility]/13/2017 through 01/16/2005. Findings: Breast tissue consists of a heterogenous combination of fattyand fibroglandular tissue, potentially obscuring small lesions, category cdensity. There are benign calcifications bilaterally. No suspicious group of microcalcification, suspicious mass, concerning focal asymmetry,architectural distortion or concerning change in breast density affecting eitherbreast. Impression: No evidence of malignancy. BIRADS category 2; benign findings, 3342F 29046, [address]25 A negative mammogram in the face of [...] 08/23/19935 Esther Crooks MD IMG BI PROCEDURES Final Re sult * (ABNORMAL) Lipid panel (01/06/2017) LDL/HDL Ratio 7(A) 0 - 4 Triglycerides 218(A) 0 - 150 mg/dL Cholesterol 288(A) 0 - 200 mg/dL HDL 43 >=40 mg/dL LDL Cholesterol 202(A) 0 - 100 mg/dL Blood Venous blood specimen / Unknown Historical Provider LAB BLOOD ORDERABLES Rosa l Result * Hepatitis C Screening (06/29/2015) Hepatitis C Screening Abstracted Historical Provider HEALTH MAINTENANCE Final Result from Last 3 Months or Most Recently Relevant to Health Maintenance Insurance MEDICARE Advance Directives Documents on File Type Date Recorded Patient Business Process Manager Expl anation Health Care Decision (hx) 05/11/2022 [...] (hx) 05/11/2022 AD SHAHID DIRECTIVE Care Teams Roller Stitcher Relationship Specialty Start Date End Date Roselia Enrique MD [address] [place] [phone] PCP - General 05/27/22
--- OUTSIDE RECORDS SUMMARY | 2025-06-26 09:51 | XMS_ITS | Encounter Summary ---
Author Organization [employer] Address [address] [facility] [address] [place] [address] Care Team Providers Care Conventional Mortgage Underwriter Name Role Phone Roselia Enrique MD Primary Care Provider [phone] Reason for Visit * Reason Comments Med Change Request Encounter Details Date Type Department Care Team ([facility] st Contact Info) Description 12/31/2022 Refill [facility] [address] [place], [place] [id number] Roselia Enrique MD [address] [place] [address] Aortic occlusion (CMS/HCC) Social History Tobacco Use [...] as of this encounter Plan of Treatment Not on file documented as of this encounter Visit Diagnoses Diagnosis Aortic occlusion (CMS/HCC) documented in this encounter Care Teams Conventional Mortgage Underwriter Relationship Specialty Start Date End Date Roselia Enrique MD [address] [place] [address] PCP - General Family Medicine 04/24/22 documented as of this encounter
--- OUTSIDE RECORDS SUMMARY | 2025-06-26 09:51 | XMS_ITS ---
Author Name [facility] Organization Unknown Encounters Encounter Type Encounter Reason Primary Diagnosis Location Date Ambulatory [facility] 09/08/2024 Care Team Organization Name Specialty Phone Email Start Date End [facility] te [facility] 2024
--- OUTSIDE RECORDS SUMMARY | 2025-06-26 09:51 | XMS_ITS | Clinical Summary ---
Author Organization [facility] Address [address] [place] [address] Care Team Providers Care Senior Manager Quality Assurance Name Role Phone Unavailable Primary Care Provider [...] 97 08/08/2021 1:44 PM EDT Temperature 36.6 C (97.8 F) 08/08/2021 1:44 PM EDT Respiratory Rate - - Oxygen Saturation 96% [...] season) 2024 04/02/2021, 03/05/2021 Influenza Vaccine (#1) 2025 , 09/26/2019, 09/16/2018, Additional history exists RSV Adult > 60+ Yrs or (1 - 1-dose 75+ series) 2031 Hepatitis B Vaccines Aged Out No long er eligible based on patient's age to complete this topic RSV Ped < 20 months Aged Out No longe r eligible based on patient's age to complete this topic
--- OUTSIDE RECORDS SUMMARY | 2025-06-26 09:51 | XMS_ITS | Clinical Summary ---
Author Organization [facility] Address [address] [place] [phone] Phone Care Team Providers Care Clamper Name Role Phone Unavailable Primary Care Provider Unavailabl e Social History Tobacco Use Types Packs/Day Years Used Date Smoking Tobacco: Never Assessed Education Answer Date Recorded Are you interested in more education? Not on christel e 03/27/2023 Are you concerned about learning? Not on file 03/27/2023 No 03/27/2023 No 03/27/2023 Digital Access Answer Date Recorded No 04/27/2023 No 04/27/2023 Reliable internet access at home? Not on file 04/27/2023 Device with a working camera? Not on file Comments Unknown Sex and Gender Information Value Date Recorded Sex Assigned at Not on file Legal Sex Female 2:26 PM EDT Gender Identity Not on file Sexual Orientation Not on file Plan of Treatment Not on file Medical Devices Not on file Additional Source Comments The information contained in this document represents components of the legal health record. It is not the complete legal health record.[facility]
== END 2025-06-26 09:25 | disposition home or self-care (01) ==
LOC: HO.MAMMO 09:24
PROVIDERS: PCP Student in an Organized Health Care Education/Training Program; Visit Provider Student in an Organized Health Care Education/Training Program
DX: Z12.31 Encounter for screening mammogram for malignant neoplasm of breast (principal)
CPT/HCPCS: 77063; 77067

== ENCOUNTER → 2025-06-26 09:45 | Outpatient (BNV) | payer OTHER, SELFPAY | PROVIDERS: PCP Student in an Organized Health Care Education/Training Program; Visit Provider Radiology Body Imaging | DX: Z12.31 Encounter for screening mammogram for malignant neoplasm of breast (principal) | CPT/HCPCS: 77063; 77067 ==